=== PATIENT | female | born 1980 | race Caucasian/White ===

== ENCOUNTER 2022-05-09 09:16 | Outpatient (CLI) | payer MEDICAID, SELFPAY | END 2022-05-09 09:17 | disposition home or self-care (01) | LOC: RT 09:16 | PROVIDERS: Family Provider Family Medicine; PCP Family Medicine; Visit Provider Family Medicine | DX: R06.2 Wheezing (principal) | CPT/HCPCS: 94060; 94726; 94729; J7613 ==

== ENCOUNTER 2022-06-21 15:03 | Emergency (ER) | payer MEDICAID, SELFPAY ==
[2022-06-21] VITALS (7 sets, daily range): BP systolic 116–157; BP diastolic 60–90; PULSE 89–104; RESP 20–25; TEMP 36.7; O2SAT 91–95; BMI 31.3
[2022-06-21] MEDS: morphine 4 mg/mL SDV 1 mL IVP ×2 (15:37→17:21)
[2022-06-21] MEDS: ketorolac 30 mg/mL INJ IVP (15:37)
--- NOTE | 2022-06-21 15:38 | CTR_ITS ---
PROCEDURE INFORMATION: Exam: CT Abdomen And Pelvis Without Contrast Exam date and time: 06/21/2022 5:07 PM Age: 42 years old Clinical indication: Pain; Other: Left flank; Prior surgery; Surgery date: 6+ months; Patient HX: Gall bladder; Additional info: Flank pain TECHNIQUE: Imaging protocol: Computed tomography of the abdomen and pelvis without contrast. Axial, coronal and sagittal reformatted images were created and reviewed. Radiation optimization: All CT scans at this facility use at least one of these dose optimization techniques: automated exposure control; mA and/or kV adjustment per patient size (includes targeted exams where dose is matched to clinical indication); or iterative reconstruction. Other protocol: This patient has received 0 known CTs and 0 known cardiac nuclear medicine studies in the 12 months prior to the current study. COMPARISON: CT abdomen pelvis w con* [id number] 09/06/2018 7:50 AM RADIATION DOSE METRICS: Total DLP (mGy-cm): 850.33 FINDINGS: Lungs: Subsegmental consolidation and ground-glass infiltrates in the lingula, left lower lobe and right middle lobe. Pleural spaces: Small left pleural effusion. Liver: Mild hepatomegaly. Gallbladder and bile ducts: Status post cholecystectomy. No biliary ductal dilatation. Pancreas: Unremarkable. Spleen: Unremarkable. Adrenal glands: Normal. No mass. Kidneys and ureters: No mass. No radiodense calculi. No hydronephrosis. Stomach and bowel: Moderate amount of retained stool in the colon. No obstruction. No bowel wall thickening. No pneumatosis. Appendix: Normal. Intraperitoneal space: Trace nonspecific free pelvic fluid, likely physiologic. No organized fluid collection. No free air. Vasculature: Unremarkable. No aneurysm. Lymph nodes: No pathologically enlarged lymph nodes. Urinary bladder: Unremarkable as visualized. Reproductive: Unremarkable. Bones/joints: No acute osseous abnormality. Soft tissues: Small, fat containing umbilical hernia. CT/CT kidney stone [id number] IMPRESSION: 1. Limited noncontrast examination without CT evidence of acute intra-abdominal or pelvic pathology. 2. Small left pleural effusion. 3. Subsegmental consolidation and ground-glass infiltrates in the lingula, left lower lobe and right middle lobe. Pneumonia can not be excluded. 4. Additional findings, as above.
[2022-06-21 15:39] LABS: Basophils # 0.1 10^3/uL (0.0-0.1); Basophils % 0.6 %; Eosinophils # 0.2 10^3/uL (0.0-0.8); Eosinophils % 2.2 %; Hematocrit 37.5 % (37.0-47.0); Hemoglobin 12.1 g/dL (11.5-15.3); Lymphocytes % 35.2 %; Mean Corpuscular HGB Conc 32.3 g/dL (30.0-36.0); Mean Corpuscular Hemoglobin 27.7 pg (28.0-34.0); Mean Corpuscular Volume 85.8 fl (81-99); Mean Platelet Volume 10.7 fL (7.4-10.4); Monocytes # 0.7 10^3/uL (0.2-0.9); Monocytes % 8.4 %; Neutrophils # 4.54 10^3/uL (1.8-7.7); Neutrophils % 53.4 %; Nucleated Red Blood Cells % 0 %; Platelet Count 291 10^3/cmm (130-400); Red Blood Count 4.37 10^6/uL (4.1-5.3); Red Cell Distribution Width 14.6 % (12.1-15.1); White Blood Count 8.5 10^3/uL (4.0-10.0)
[2022-06-21 15:58] LABS: Anion Gap 16.1 (5-19); Blood Urea Nitrogen 7 mg/dL (6-20); Calcium 8.8 mg/dL (8.5-10.5); Carbon Dioxide 23 mmol/L (22-29); Chloride 102 mmol/L (98-107); Glomerular Filtration Rate 109.1 mL/min (90-130); Glucose 117 mg/dL (65-115); Osmolality Calculated 283 mOsm/kg (285-295); Potassium 4.1 mmol/L (3.5-5.1); Sodium 137 mmol/L (136-145)
[2022-06-21 16:17] LABS: Add Urine Microscopic? NO; Charge for UA Resulting for Rev
[2022-06-21 16:24] LABS: Bilirubin Urine Neg (Negative); Blood Urine Neg (Negative); Glucose Urine UA Norm (Normal); Ketones Urine 1+ (Negative); Leukocyte Esterase Urine Negative (Negative); Nitrate Urine Negative (Negative); Protein Urine Neg (Negative); Urine Appearance Clear (CLEAR); Urine Color Yellow (Yellow); Urobilinogen Urine 1 mg/dL (Negative); pH Urine 6 (5-7)
--- NOTE | 2022-06-21 16:31 | W.ED.BACK ---
HPI - Back Pain/Injury General: Chief Complaint: Back Pain/Injury Stated Complaint: back pain Time Seen by Provider: 06/21/22 15:12 Source: patient Mode of arrival: ambulatory History of Present Illness: 42-year-old female presents emergency room complaining of intermittent back pain for the last couple of days. She woke up with the back pain 1 morning and been nagging for a time. She was sitting in the car about an hour prior to arrival and suddenly had marked worsening of her pain. She cannot recall anything that seem to precipitate it no falls traumas accidents. She happened spontaneously she was not even bending over at the time does remember lifting anything that seem precipitated. She denies any previous kidney stones no hematuria. She denies any dysuria urgency or frequency is complaining of severe left flank pain when I came in the room she is standing at the bedside repositioning herself continually trying to find a comfortable position she does not have any pain with palpation across her low back. No radiation of pain into the lower extremities. MD elicited complaint: back pain Onset (ago): day(s) Timing: constant Severity: severe Similar Symptoms Previously: No Quality: sharp Location: left flank Radiation: none Exacerbating factors: none Associated symptoms: Deny abdominal pain, arthralgias, chills, change in bowel habits, difficulty walking, dysuria, fatigue, fecal incontinence, fever(s), hematuria, myalgias, nausea, numbness, syncope, tingling/numbness/burning, urinary frequency, urinary urgency, vomiting or weakness Review of Systems Const: Denies: fever(s), chills, fatigue or malaise ENMT: Denies: throat pain, ear or mastoid pain, nasal discharge or nasal congestion Card: Denies: chest pain, palpitations, irregular heart rhythm or syncope Resp: Denies: dyspnea, productive cough or non-productive cough GI: Denies: abdominal pain, nausea, vomiting, fecal incontinence or change in bowel habits : Reports: flank pain; Denies: dysuria, urinary frequency, urinary urgency or hematuria Skin/Breast: Denies: rash or pruritus Neuro: Denies: difficulty walking PFS ED PFSH: Medical History (Updated 06/21/22 @ 17:43 by Angelo Ascencio DO) Asthma Depression Physical Exam Const: COMMON NORMALS: no acute distress GENERAL APPEARANCE: cooperative and comfortable ORIENTATION/CONSCIOUSNESS: Yes awake, Yes oriented to person, Yes oriented to place and Yes oriented to time HENMT: COMMON NORMALS: normocephalic, atraumatic and hearing grossly normal bilaterally HEAD & SCALP: normocephalic and atraumatic Resp: COMMON NORMALS: normal respiratory effort, No retractions, No use of accessory muscles and clear to auscultation bilaterally AUSCULTATION: clear to auscultation bilaterally Cardio: COMMON NORMALS: regular rate, regular rhythm and No murmurs present (Cardio) RATE: regular rate RHYTHM: regular rhythm Extremity: COMMON NORMALS: normal to inspection, capillary refill normal, no clubbing, cyanosis or edema, no calf tenderness and no pedal edema Neuro: SENSORIUM/ORIENTATION: Yes oriented to person, Yes oriented to place and Yes oriented to time Skin: COMMON NORMALS: no rashes or lesions noted GENERAL SKIN EXAM: no rashes or lesions noted Course Vital Signs: Vital signs: Vital Signs Temperature 98.0 F 06/21/22 15:03 Pulse Rate 98 06/21/22 18:05 Respiratory Rate 22 H 06/21/22 17:21 Blood Pressure 123/69 06/21/22 18:05 Pulse Oximetry 93 06/21/22 18:05 Oxygen Delivery Me thod 06/21/22 18:05 MDM - Back Pain/Injury Medical Decision Making Patient has isolated low back pain that began spontaneously. No blood in the urine the way she presented initially she appeared to have renal stone was very uncomfortable shifting her weight moving constantly try to find a comfortable position CT was negative no blood in her urine other labs reviewed. She has no trauma. She did get improvement with medications given we will discharge patient home with diclofenac muscle relaxer steroid taper if worsening symptoms can return to the emergency room or if persist follow-up with primary care may need further imaging. Medical Records I reviewed the patient's medical records. Labs I reviewed the patient's lab results. 06/21/22 15:25 06/21/22 15:25 Radiology Impressions Abdomen/Pelvis CT 06/21/22 15:38 IMPRESSION: 1. Limited noncontrast examination without CT evidence of acute intra-abdominal or pelvic pathology. 2. Small left pleural effusion. 3. Subsegmental consolidation and ground-glass infiltrates in the lingula, left lower lobe and right middle lobe. Pneumonia can not be excluded. 4. Additional findings, as above. Laboratory Results WBC 8.5 10^3/uL (4.0-10.0) 06/21/22 15:25 RBC 4.37 10^6/uL (4.1-5.3) 06/21/22 15:25 Hgb 12.1 g/dL (11.5-15.3) 06/21/22 15:25 Hct 37.5 % (37.0-47.0) 06/21/22 15:25 MCV 85.8 fl (81-99) 06/21/22 15:25 MCH 27.7 pg (28.0-34.0) L 06/21/22 15:25 MCHC 32.3 g/dL (30.0-36.0) 06/21/22 15:25 RDW 14.6 % (12.1-15.1) 06/21/22 15:25 Plt Count 291 10^3/cmm (130-400) 06/21/22 15:25 MPV 10.7 fL (7.4-10.4) H 06/21/22 15:25 Neut % (Auto) 53.4 % 06/21/22 15:25 Lymph % (Auto) 35.2 % 06/21/22 15:25 [place] % (Auto) 8.4 % 06/21/22 15:25 Eos % (Auto) 2.2 % 06/21/22 15:25 Baso % (Auto) 0.6 % 06/21/22 15:25 Neut # (Auto) 4.54 10^3/uL (1.8-7.7) 06/21/22 15:25 Lymph # (Auto) 3.0 10^3/uL (0.8-4.8) 06/21/22 15:25 [place] # (Auto) 0.7 10^3/uL (0.2-0.9) 06/21/22 15:25 Eos # (Auto) 0.2 10^3/uL (0.0-0.8) 06/21/22 15:25 Baso # (Auto) 0.1 10^3/uL (0.0-0.1) 06/21/22 15:25 Nucleated RBC % (auto) 0 % 06/21/22 15:25 Nucleated RBCs # 0.0 /100WBC 06/21/22 15:25 Sodium 137 mmol/L (136-145) 06/21/22 15:25 Potassium 4.1 mmol/L (3.5-5.1) 06/21/22 15:25 Chloride 102 mmol/L (98-107) 06/21/22 15:25 Carbon Dioxide 23 mmol/L (22-29) 06/21/22 15:25 Anion Gap 16.1 (5-19) 06/21/22 15:25 BUN 7 mg/dL (6-20) 06/21/22 15:25 Creatinine 0.6 mg/dL (0.5-0.9) 06/21/22 15:25 GFR Calculation 109.1 mL/min (90-130) 06/21/22 15:25 Glucose 117 mg/dL (65-115) H 06/21/22 15:25 Calculated Osmolality 283 mOsm/kg (285-295) L 06/21/22 15:25 Calcium 8.8 mg/dL (8.5-10.5) 06/21/22 15:25 Urine Color Yellow (Yellow) 06/21/22 16:16 Urine Appearance Clear (CLEAR) 06/21/22 16:16 Urine pH 6 (5-7) 06/21/22 16:16 Ur Specific [place] 1.020 (1.005-1.030) 06/21/22 16:16 Urine Protein Neg (Negative) 06/21/22 16:16 Urine Glucose (UA) Norm (Normal) 06/21/22 16:16 Urine Ketones 1+ (Negative) H 06/21/22 16:16 Urine Blood Neg (Negative) 06/21/22 16:16 Urine Nitrate Negative (Negative) 06/21/22 16:16 Urine Bilirubin Neg (Negative) 06/21/22 16:16 Urine Urobilinogen 1 mg/dL (Negative) H 06/21/22 16:16 Ur Leukocyte Esterase Negative (Negative) 06/21/22 16:16 Discharge Plan Discharge Patient Disposition: Home Clinical Impression: Strain of lumbar region Condition: Stable Prescriptions: New prednisone 20 mg tablet 20 mg PO TID Qty: 15 0RF Rx Instructions: 1 p.o. 3 times daily x3 days, 1 p.o. twice daily x2 days, 1 p.o. daily x2 days diclofenac sodium 75 mg tablet,delayed release (DR/EC) 75 mg PO Q12H PRN (Reason: pain) Qty: 20 0RF tizanidine 4 mg capsule 4 mg PO Q6H PRN (Reason: muscle spasticity) Qty: 20 0RF Rx Instructions: do not exceed 3 doses per 24 hrs No Action budesonide-formoterol [Symbicort] 160-4.5 mcg/actuation HFA aerosol inhaler 2 puff inhalation BID fluoxetine 40 mg capsule 40 mg PO DAILY varenicline [Chantix] 1 mg tablet 1 mg PO BID hydroxyzine pamoate 50 mg capsule 50 - 100 mg PO BEDTIME PRN (Reason: Itching) propranolol 20 mg tablet 20 mg PO TID bupropion HCl 150 mg tablet extended release 24 hr 150 mg PO DAILY Discharge Orders: Discharge ED (Routine); Ordered 06/21/22 Ordered By: Angelo Ascencio Referrals: Red Blanco MD [Primary Care Provider] - Discharge Diet: Usual diet Discharge Activity: Increase activity as tolerated Patient Instructions: Acute Low Back Pain (ED), Opioid Safety, Pain Management Activity Restrictions/Additional Instructions: You were seen today for back pain. Some the characteristics of your pain you presented were suggestive of a kidney stone however there was no blood in your urine and the CT scan was negative for any stone. You are discharged home with pain medication steroids and muscle relaxers if your symptoms do not improve follow-up with primary care doctor. Coding Level of Care Code ED Blood Bank Business Manager for Peña Fwd Exam Detailed
[2022-06-21] MEDS: orphenadrine 30 mg/mL Inj 2 mL 60 MG IVP (17:56)
[2022-06-21] MEDS: dexamethasone 10 mg/mL INJ IVP (17:56)
== END 2022-06-21 18:10 | disposition home or self-care (01) ==
PROVIDERS: Emergency Provider Family Medicine; PCP Family Medicine
DX: S39.012A Strain of muscle, fascia and tendon of lower back, initial encounter (principal); X58.XXXA Exposure to other specified factors, initial encounter
CPT/HCPCS: 74176; 80048; 81003; 85025; 96374; 96375; 96376; 99285; J1100; J1885; J2270; J2360

== ENCOUNTER 2022-06-24 13:47 | Emergency (ER) | payer MEDICAID, SELFPAY ==
[2022-06-24 13:51] VITALS: BP 150/87; PULSE 89; RESP 19; TEMP 36.7; O2SAT 95; BMI 31.3
[2022-06-24 13:56] VITALS: BP 156/84; PULSE 78; RESP 16; O2SAT 95
--- NOTE | 2022-06-24 14:47 | CTR_ITS ---
PROCEDURE INFORMATION: Exam: CTA Chest With Contrast Exam date and time: 06/24/2022 3:20 PM Age: 42 years old Clinical indication: Pain; Left-sided; Additional info: Left sdied chest pain TECHNIQUE: Imaging protocol: Computed tomographic angiography of the chest with contrast. 3D rendering (Not supervised by radiologist): MIP and/or 3D reconstructed images were created by the technologist. Radiation optimization: All CT scans at this facility use at least one of these dose optimization techniques: automated exposure control; mA and/or kV adjustment per patient size (includes targeted exams where dose is matched to clinical indication); or iterative reconstruction. Contrast material: OMNI 350; Contrast volume: 90 ml; Contrast route: INTRAVENOUS (IV); Other protocol: This patient has received [address] and 0 known cardiac nuclear medicine studies in the 12 months prior to the current study. COMPARISON: CR XR chest 2V* [id number] 05/22/2022 11:14 AM RADIATION DOSE METRICS: Total DLP (mGy-cm): 467.37 FINDINGS: Pulmonary arteries: Normal. No pulmonary emboli. Aorta: Unremarkable. No aortic aneurysm. No aortic dissection. Lungs: Emphysematous changes. Patchy bilateral left greater than right airspace infiltrates. Pleural spaces: Trace right and small to moderate left pleural effusions. Heart: Cardiomegaly. Coronary arteries: Negative for coronary artery atherosclerotic calcifications. Lymph nodes: Several prominent mediastinal lymph nodes measuring 7.4 mm, nonspecific Gallbladder and bile ducts: Cholecystectomy. Bones/joints: Unremarkable. No acute fracture. Soft tissues: Unremarkable. CT/CT angio chest PE protcl [id number] IMPRESSION: 1. Negative for pulmonary embolus. 2. Trace right and small to moderate left pleural effusions. 3. Emphysematous changes. 4. Patchy bilateral left greater than right airspace infiltrates. 5. Cardiomegaly. 6. Cholecystectomy. 7. Several prominent mediastinal lymph nodes measuring 7.4 mm, nonspecific
--- NOTE | 2022-06-24 15:04 | W.ED.CHESTPA ---
HPI - Chest Pain General: Chief Complaint: Abdominal Pain Stated Complaint: cough Time Seen by Provider: 06/24/22 14:14 Source: patient Mode of arrival: ambulatory History of Present Illness: This 42-year-old female presents with left sided chest/rib cage pain that started 7 days ago. She woke up from sleep with the pain. Pain is sharp in nature and is exacerbated by movement and deep breathing. She was seen in this ER few days ago for the pain. CT abdomen/pelvis done at the time showed a small left pleural effusion, groundglass infiltrates in the lingula, left lower lobe and right middle lobe. Patient presents today stating that she was unable to sleep last night because of the pain. She has no fever, nausea or vomiting. Despite taking pain medications and muscle relaxers, pain has persisted. She is in distress due to the pain. Review of Systems Const: Denies: chills, body aches or change in appetite Eyes: Denies: change in vision or eye discharge ENMT: Denies: throat pain, dental pain or nasal discharge Card: Denies: chest pain or lightheadedness : Denies: dysuria Musc: Reports: other (Left rib cage pain); Denies: neck pain or back pain Neuro: Denies: headache(s) or weakness in extremities Psych: Denies: depression Philip/Lymph: Denies: easy bruising All/Imm: Denies: urticaria, tongue swelling or facial swelling PFS ED PFSH: Medical History (Updated 06/24/22 @ 17:03 by Zia Eduardo MD) Asthma Depression Physical Exam Const: COMMON NORMALS: patient oriented x3, no limitations and alert OTHER: Mild distress due to pain. HENMT: COMMON NORMALS: normocephalic HEAD & SCALP: normocephalic Eye: COMMON NORMALS: EOMs intact bilaterally Neck/C-Spine: COMMON NORMALS: full ROM and supple Chest: COMMONS NORMALS: normal inspection of the chest OTHER: Tenderness on palpation of the left lateral chest wall. No redness, bruising or step deformity. Pain is worsened on movement of the left shoulder especially on abduction and forward flexion. Resp: COMMON NORMALS: normal respiratory effort, No retractions, No use of accessory muscles and clear to auscultation bilaterally AUSCULTATION: clear to auscultation bilaterally Cardio: COMMON NORMALS: regular rate, regular rhythm and No murmurs present (Cardio) RATE: regular rate RHYTHM: regular rhythm GI: COMMON NORMALS: Normal to inspection, nondistended, normoactive bowel sounds present and non-tender : COMMON NORMALS: Yes no CVA tenderness BLADDER/KIDNEY EXAM: Yes no CVA tenderness Back/Pelvis: COMMON NORMALS: no CVA tenderness and no thoracic nor lumbar tenderness Extremity: GENERAL: Yes normal exam except as noted Neuro: COMMON NORMALS: patient oriented x3 and no focal motor deficits SENSORIUM/ORIENTATION: Yes alert Psych: COMMON NORMALS: mental status grossly normal and cooperative Course Vital Signs: Vital signs: Vital Signs Temperature 98.1 F 06/24/22 13:51 Pulse Rate 74 06/24/22 16:36 Respiratory Rate 16 06/24/22 16:36 Blood Pressure 120/80 06/24/22 16:36 Pulse Oximetry 91 06/24/22 16:36 Oxygen Delivery Me thod 06/24/22 16:36 MDM - Chest Pain Medical Decision Making Medical decision making: Patient presents with left rib cage/chest pain that started about 7 days ago. She denies any fall or trauma to the area. She was seen here few days ago and CT abdomen/pelvis at that time showed groundglass infiltrates in the lingula, left lower lobe and right middle lobe. With concerns for pulmonary embolism, CTA chest was obtained. It shows patchy bilateral airspace infiltrates and trace right and small to moderate left pleural effusion. She will be treated for pneumonia with antibiotics and pain medications. Given that oxygen saturation is normal on room air and she is clinically stable, there is no indication to admit her. But she was advised to return if she develops worsening pain, fever or any new concerning symptoms. Patient verbalized understanding and agrees with the plan. Lab Data 06/24/22 15:05 06/24/22 15:05 Radiology Impressions Chest CTA 06/24/22 14:47 IMPRESSION: 1. Negative for pulmonary embolus. 2. Trace right and small to moderate left pleural effusions. 3. Emphysematous changes. 4. Patchy bilateral left greater than right airspace infiltrates. 5. Cardiomegaly. 6. Cholecystectomy. 7. Several prominent mediastinal lymph nodes measuring 7.4 mm, nonspecific Laboratory Results WBC 16.4 10^3/uL (4.0-10.0) H 06/24/22 15:05 RBC 4.80 10^6/uL (4.1-5.3) 06/24/22 15:05 Hgb 13.1 g/dL (11.5-15.3) 06/24/22 15:05 Hct 40.9 % (37.0-47.0) 06/24/22 15:05 MCV 85.2 fl (81-99) 06/24/22 15:05 MCH 27.3 pg (28.0-34.0) L 06/24/22 15:05 MCHC 32.0 g/dL (30.0-36.0) 06/24/22 15:05 RDW 14.7 % (12.1-15.1) 06/24/22 15:05 Plt Count 381 10^3/cmm (130-400) 06/24/22 15:05 MPV 10.7 fL (7.4-10.4) H 06/24/22 15:05 Neut % (Auto) 85.3 % 06/24/22 15:05 Lymph % (Auto) 7.2 % 06/24/22 15:05 [place] % (Auto) 6.4 % 06/24/22 15:05 Eos % (Auto) 0.0 % 06/24/22 15:05 Baso % (Auto) 0.1 % 06/24/22 15:05 Neut # (Auto) 14.02 10^3/uL (1.8-7.7) H 06/24/22 15:05 Lymph # (Auto) 1.2 10^3/uL (0.8-4.8) 06/24/22 15:05 [place] # (Auto) 1.1 10^3/uL (0.2-0.9) H 06/24/22 15:05 Eos # (Auto) 0.0 10^3/uL (0.0-0.8) 06/24/22 15:05 Baso # (Auto) 0.0 10^3/uL (0.0-0.1) 06/24/22 15:05 Nucleated RBC % (auto) 0 % 06/24/22 15:05 Nucleated RBCs # 0.0 /100WBC 06/24/22 15:05 Sodium 137 mmol/L (136-145) 06/24/22 15:05 Potassium 4.3 mmol/L (3.5-5.1) 06/24/22 15:05 Chloride 99 mmol/L (98-107) 06/24/22 15:05 Carbon Dioxide 24 mmol/L (22-29) 06/24/22 15:05 Anion Gap 18.3 (5-19) 06/24/22 15:05 BUN 10 mg/dL (6-20) 06/24/22 15:05 Creatinine 0.6 mg/dL (0.5-0.9) 06/24/22 15:05 GFR Calculation 109.1 mL/min (90-130) 06/24/22 15:05 Glucose 136 mg/dL (65-115) H 06/24/22 15:05 Calculated Osmolality 285 mOsm/kg (285-295) 06/24/22 15:05 Calcium 9.1 mg/dL (8.5-10.5) 06/24/22 15:05 Total Bilirubin 0.2 mg/dL (0.15-1.2) 06/24/22 15:05 AST 38 U/L (0-32) H 06/24/22 15:05 ALT 66 U/L (0-33) H 06/24/22 15:05 Alkaline Phosphatase 111 U/L (35-105) H 06/24/22 15:05 Total Protein 7.4 g/dL (6.6-8.7) 06/24/22 15:05 Albumin 4.0 g/dL (3.5-5.2) 06/24/22 15:05 Globulin 3.4 g/dL (1.3-4.6) 06/24/22 15:05 Discharge Plan Discharge Patient Disposition: Home Clinical Impression: Pneumonia Condition: Stable Prescriptions: New levofloxacin 750 mg tablet 750 mg PO DAILY 7 Days Qty: 7 0RF hydrocodone-acetaminophen 5-325 mg tablet 1 tab PO Q6H PRN (Reason: pain) Qty: 20 0RF No Action budesonide-formoterol [Symbicort] 160-4.5 mcg/actuation HFA aerosol inhaler 2 puff inhalation BID fluoxetine 40 mg capsule 40 mg PO DAILY varenicline [Chantix] 1 mg tablet 1 mg PO BID hydroxyzine pamoate 50 mg capsule 50 - 100 mg PO BEDTIME PRN (Reason: Itching) propranolol 20 mg tablet 20 mg PO TID bupropion HCl 150 mg tablet extended release 24 hr 150 mg PO DAILY prednisone 20 mg tablet 20 mg PO TID Qty: 15 0RF Rx Instructions: 1 p.o. 3 times daily x3 days, 1 p.o. twice daily x2 days, 1 p.o. daily x2 days diclofenac sodium 75 mg tablet,delayed release (DR/EC) 75 mg PO Q12H PRN (Reason: pain) Qty: 20 0RF tizanidine 4 mg capsule 4 mg PO Q6H PRN (Reason: muscle spasticity) Qty: 20 0RF Rx Instructions: do not exceed 3 doses per 24 hrs Discharge Orders: Discharge ED (Routine); Ordered 06/24/22 Ordered By: Zia Eduardo Referrals: Red Blanco MD [Primary Care Provider] - Patient Instructions: Opioid Safety, Pain Management Activity Restrictions/Additional Instructions: Take Levaquin as prescribed. Take [place] as needed for pain. You may add [id number] Tylenol or Motrin to it. Follow-up with your primary care physician in 3 to 5 days for reevaluation. Return if your condition worsens or you develop any new concerning symptoms. Coding Level of Care Code ED Supervisor Calibration for Peña Fwd Exam Comprehensive
--- NOTE | 2022-06-24 15:08 | ECG_ITS ---
[facility] Test Date: 2022-06-24 Pat Name: Karoline Almaguer Department: Room: Gender: Female Bituminous Paving Machine Operator: : 1980 Requested By: Zia Grady Order Number: [id number] Albin MD: Marlee Snell M.D. Measurements Intervals [place] Rate: 76 P: 35 [place]: 140 QRS: 16 QRSD: 94 T: 28 QT: 367 QTc: 415 Interpretive Statements SINUS RHYTHM No previous ECG available for comparison Electronically Signed On 06-24-2022 15:38:06 FIELD ENGINEER by Marlee Snell M.D. [id number]
[2022-06-24] MEDS: morphine 4 mg/mL SDV 1 mL IVP (15:13)
[2022-06-24 15:14] VITALS: BP 156/84; PULSE 78; RESP 14; O2SAT 93
[2022-06-24 15:15] LABS: Basophils % 0.1 %; Hematocrit 40.9 % (37.0-47.0); Hemoglobin 13.1 g/dL (11.5-15.3); Lymphocytes # 1.2 10^3/uL (0.8-4.8); Lymphocytes % 7.2 %; Mean Corpuscular Hemoglobin 27.3 pg (28.0-34.0); Mean Corpuscular Volume 85.2 fl (81-99); Mean Platelet Volume 10.7 fL (7.4-10.4); Monocytes # 1.1 10^3/uL (0.2-0.9); Monocytes % 6.4 %; Neutrophils # 14.02 10^3/uL (1.8-7.7); Neutrophils % 85.3 %; Nucleated Red Blood Cells % 0 %; Platelet Count 381 10^3/cmm (130-400); Red Cell Distribution Width 14.7 % (12.1-15.1); White Blood Count 16.4 10^3/uL (4.0-10.0)
[2022-06-24] MEDS: iohexol 350 mg/mL 500 mL Btl (per mL) IV (15:31)
[2022-06-24 15:36] LABS: Alanine Aminotransferase 66 U/L (0-33); Alkaline Phosphatase 111 U/L (35-105); Anion Gap 18.3 (5-19); Aspartate Amino Transferase 38 U/L (0-32); Blood Urea Nitrogen 10 mg/dL (6-20); Calcium 9.1 mg/dL (8.5-10.5); Carbon Dioxide 24 mmol/L (22-29); Chloride 99 mmol/L (98-107); Globulin 3.4 g/dL (1.3-4.6); Glomerular Filtration Rate 109.1 mL/min (90-130); Glucose 136 mg/dL (65-115); Osmolality Calculated 285 mOsm/kg (285-295); Potassium 4.3 mmol/L (3.5-5.1); Sodium 137 mmol/L (136-145); Total Bilirubin 0.2 mg/dL (0.15-1.2); Total Protein 7.4 g/dL (6.6-8.7)
[2022-06-24 16:14] VITALS: BP 126/66; PULSE 68; RESP 18; O2SAT 90
[2022-06-24] MEDS: ketorolac 30 mg/mL INJ IVP (16:31)
[2022-06-24] MEDS: levoFLOXacin 750 mg Tablet PO (16:33)
[2022-06-24 16:36] VITALS: BP 120/80; PULSE 74; RESP 16; O2SAT 91
[2022-06-24 17:30] VITALS: BP 120/80; PULSE 74; RESP 16; O2SAT 91
== END 2022-06-24 17:32 | disposition home or self-care (01) ==
PROVIDERS: Emergency Provider Family Medicine; PCP Family Medicine
DX: J18.9 Pneumonia, unspecified organism (principal)
CPT/HCPCS: 71275; 80053; 85025; 93005; 96374; 96375; 99285; J1885; J2270; Q9967

== ENCOUNTER 2022-07-04 13:08 | Inpatient (IN) | payer MEDICAID, SELFPAY ==
[2022-07-04] VITALS (35 sets, daily range): BP systolic 121–147; BP diastolic 76–95; PULSE 79–114; RESP 16–20; TEMP 36.2–36.4; O2SAT 88–94; BMI 31.3
--- NOTE | 2022-07-04 13:20 | XRR_ITS ---
PROCEDURE INFORMATION: Exam: XR Chest Exam date and time: 07/04/2022 2:16 PM Age: 42 years old Clinical indication: Shortness of breath; Additional info: SOB TECHNIQUE: Imaging protocol: Radiologic exam of the chest. Views: 1 view. COMPARISON: CR XR chest 2V* [id number] 06/28/2022 12:10 PM FINDINGS: Lungs: There is no consolidation. Partial left lower lobe atelectasis is suspected. There is decreased opacity in the left lung base since 06/28/2022. Pleural spaces: Left pleural effusion is decreased since 06/28/2022. No pneumothorax. Heart/Mediastinum: Cardiomediastinal contours are unremarkable. Bones/joints: Bones are unremarkable. XR/XR chest 1V portable [id number] IMPRESSION: Decreased left pleural effusion and left lower lung opacity since 06/28/2022.
--- NOTE | 2022-07-04 14:49 | W.ED.SOB ---
HPI - SOB/Dyspnea General: Chief Complaint: Shortness of Breath/Dyspnea Stated Complaint: sob Time Seen by Provider: 07/04/22 14:32 Source: patient Mode of arrival: ambulatory History of Present Illness: HPI Narrative: 42-year-old female was recently for pneumonia in the emergency room had a pleural effusion at that time was treated as an outpatient has follow-up up with pulmonology has not yet seen pulmonology is increasing difficulty breathing is still on her oral antibiotic evaluation today is day 10. She states she had worsening time breathing has not been able to use her inhaled medication she is normally on Symbicort and ProAir. She denies any fever sweats chills or productive cough on initial arrival here she is hovering around 90% on room air and is mildly tachycardic but improves with rest. MD elicited complaint: shortness of breath and cough Pertinent past history: asthma Onset (ago): day(s) Context: recent illness Timing: constant Severity: severe Exacerbating factors: lying flat, exertion, coughing and talking Relieving factors: oxygen, rest and bronchodilators Known history of: asthma Associated symptoms: Reports abdominal pain, chest congestion, cough and orthopnea; Deny chest pain, diaphoresis, dizziness, extremity pain, fever(s), hemoptysis, lightheadedness, myalgias, nausea, palpitations, paresthesias, polydipsia, polyuria, rash, sense of impending doom, syncope or vomiting Treatment prior to arrival: none Review of Systems Const: Denies: fever(s), chills, fatigue, malaise or diaphoresis ENMT: Denies: throat pain, ear or mastoid pain, nasal discharge or nasal congestion Card: Reports: orthopnea; Denies: chest pain, palpitations, lightheadedness or syncope Resp: Reports: chest congestion; Denies: hemoptysis GI: Reports: abdominal pain; Denies: nausea or vomiting : Denies: flank pain, difficulty voiding, dysuria, urinary frequency or urinary urgency Musc: Denies: extremity pain Skin/Breast: Denies: rash or pruritus Neuro: Denies: dizziness Endo: Denies: polyuria or polydipsia PFSH ED PFSH: Medical History Asthma Depression Physical Exam Const: COMMON NORMALS: no acute distress GENERAL APPEARANCE: cooperative and comfortable ORIENTATION/CONSCIOUSNESS: Yes awake, Yes oriented to person, Yes oriented to place and Yes oriented to time HENMT: COMMON NORMALS: normocephalic, atraumatic and hearing grossly normal bilaterally HEAD & SCALP: normocephalic and atraumatic Resp: COMMON NORMALS: No retractions and No use of accessory muscles AUSCULTATION: crackles Laterality: left and wheezes Cardio: COMMON NORMALS: regular rhythm and No murmurs present (Cardio) RATE: tachycardic RHYTHM: regular rhythm GI: COMMON NORMALS: Soft to palpation and No hepatosplenomegaly present AUSCULTATION: Yes normoactive bowel sounds PALPATION: Yes Soft to palpation, No Tenderness to palpation present (GI), No Guarding due to palpation present (GI) and Yes No hepatosplenomegaly present Extremity: COMMON NORMALS: normal to inspection, capillary refill normal, no clubbing, cyanosis or edema, no calf tenderness and no pedal edema Neuro: SENSORIUM/ORIENTATION: Yes oriented to person, Yes oriented to place and Yes oriented to time Skin: COMMON NORMALS: no rashes or lesions noted GENERAL SKIN EXAM: no rashes or lesions noted Course Vital Signs: Vital signs: Vital Signs Temperature 97.7 F 07/05/22 04:00 Pulse Rate 75 07/05/22 04:00 Respiratory Rate 18 07/05/22 04:00 Blood Pressure 115/72 07/05/22 04:00 Pulse Oximetry 94 07/05/22 04:00 Oxygen Delivery Me thod 07/05/22 04:00 Oxygen Flow Rate 5 07/05/22 04:00 MDM - SOB/Dyspnea Medical Decision Making Patient on recent pneumonia is on the chest x-ray was read as lessening pleural effusion on the CT increased pleural effusion there still is some underlying pneumonia and she has failed outpatient therapy with Levaquin. Will admit to the hospital she is requiring significant oxygen support at 5 L by nasal cannula at this time. Started on Vanco and Zosyn discussed with hospitalist they are planning to tap her pleural effusion. Admission orders written. Medical Records I reviewed the patient's medical records. Lab Data I reviewed the patient's lab results. 07/04/22 14:41 07/04/22 14:41 Labs/Radiology: Radiology Impressions Chest X-Ray 07/04/22 13:20 IMPRESSION: Decreased left pleural effusion and left lower lung opacity since 06/28/2022. Chest CTA 07/04/22 15:48 IMPRESSION: 1. Moderate left pleural effusion has mildly increased in size when compared to the prior study. There is adjacent compressive atelectasis and or pneumonia. 2. Trace right pleural effusion with adjacent compressive atelectasis and or pneumonia. 3. There are centrilobular emphysematous changes in the bilateral lungs. Laboratory Results WBC 10.8 10^3/uL (4.0-10.0) H 07/04/22 14:41 RBC 4.92 10^6/uL (4.1-5.3) 07/04/22 14:41 Hgb 13.0 g/dL (11.5-15.3) 07/04/22 14:41 Hct 40.9 % (37.0-47.0) 07/04/22 14:41 MCV 83.1 fl (81-99) 07/04/22 14:41 MCH 26.4 pg (28.0-34.0) L 07/04/22 14:41 MCHC 31.8 g/dL (30.0-36.0) 07/04/22 14:41 RDW 14.3 % (12.1-15.1) 07/04/22 14:41 Plt Count 484 10^3/cmm (130-400) H 07/04/22 14:41 MPV 9.1 fL (7.4-10.4) 07/04/22 14:41 Neut % (Auto) 66.0 % 07/04/22 14:41 Lymph % (Auto) 24.3 % 07/04/22 14:41 [place] % (Auto) 6.8 % 07/04/22 14:41 Eos % (Auto) 1.2 % 07/04/22 14:41 Baso % (Auto) 0.6 % 07/04/22 14:41 Neut # (Auto) 7.12 10^3/uL (1.8-7.7) 07/04/22 14:41 Lymph # (Auto) 2.6 10^3/uL (0.8-4.8) 07/04/22 14:41 [place] # (Auto) 0.7 10^3/uL (0.2-0.9) 07/04/22 14:41 Eos # (Auto) 0.1 10^3/uL (0.0-0.8) 07/04/22 14:41 Baso # (Auto) 0.1 10^3/uL (0.0-0.1) 07/04/22 14:41 Nucleated RBC % (auto) 0 % 07/04/22 14: Nucleated RBCs # 0.0 /100WBC 07/04/22 14:41 Specimen Type Arterial 07/04/22 15:34 Sample Site Radial, right 07/04/22 15:34 ABG pH 7.44 (7.35-7.45) 07/04/22 15:34 ABG pCO2 40.4 mmHg (35-45) 07/04/22 15:34 ABG pO2 64.7 mmHg (80.0-100.0) L 07/04/22 15:34 ABG HCO3 27.1 mmol/L (22-26) H 07/04/22 15:34 ABG O2 Saturation 93.7 07/04/22 15:34 ABG Base Excess 2.6 mmol/L (-2.0-2.0) H 07/04/22 15:34 Puneet Test Pos 07/04/22 15:34 A-a O2 Gradient 14.2 mmHg (5-10) H 07/04/22 15:34 Hematocrit 40.4 % (37-47) 07/04/22 15:34 Hgb O2 Saturation 88.7 % (95-100) L 07/04/22 15:34 Carboxyhemoglobin 4.9 %THgb (0.4-20.1) 07/04/22 15:34 Methemoglobin 0.5 % (0.4-1.5) 07/04/22 15:34 Total Hemoglobin 13.2 g/dL (12-16) 07/04/22 15:34 Sodium 140.0 mmol/L (131-143) 07/04/22 15:34 Potassium 4.3 mmol/L (3.5-5.0) 07/04/22 15:34 Glucose 90.0 mg/dL (70-115) 07/04/22 15:34 Ionized Calcium 1.2 mmol/L (1.1-1.4) 07/04/22 15:34 O2 Delivery Device Nc 07/04/22 15:34 O2 Liters/Min 3.0 % 07/04/22 15:34 FiO2 32.0 % 07/04/22 15:34 Brazing Machine Operator ID glc 07/04/22 15:34 Sodium 137 mmol/L (136-145) 07/04/22 14:41 Potassium 4.4 mmol/L (3.5-5.1) 07/04/22 14:41 Chloride 101 mmol/L (98-107) 07/04/22 14:41 Carbon Dioxide 24 mmol/L (22-29) 07/04/22 14:41 Anion Gap 16.4 (5-19) 07/04/22 14:41 BUN 5 mg/dL (6-20) L 07/04/22 14:41 Creatinine 0.6 mg/dL (0.5-0.9) 07/04/22 14:41 GFR Calculation 109.1 mL/min (90-130) 07/04/22 14:41 Glucose 88 mg/dL (65-115) 07/04/22 14:41 Calculated Osmolality 281 mOsm/kg (285-295) L 07/04/22 14:41 Lactic Acid 2.1 mmol/L (0.5-2.2) 07/04/22 18:55 Calcium 9.0 mg/dL (8.5-10.5) 07/04/22 14:41 Total Bilirubin 0.2 mg/dL (0.15-1.2) 07/04/22 14:41 AST 12 U/L (0-32) 07/04/22 14:41 ALT 39 U/L (0-33) H 07/04/22 14:41 Alkaline Phosphatase 126 U/L (35-105) H 07/04/22 14:41 NT-Pro-B Natriuret Pep 40 pg/mL (0-125) 07/04/22 18:55 Total Protein 6.9 g/dL (6.6-8.7) 07/04/22 14:41 Albumin 3.8 g/dL (3.5-5.2) 07/04/22 14:41 Globulin 3.1 g/dL (1.3-4.6) 07/04/22 14:41 Procalcitonin 0.02 ng/mL (0-0.5) 07/04/22 18:55 TSH 0.33 uIU/mL (0.27-4.20) 07/04/22 18:55 Discharge Plan Discharge Patient Disposition: Admitted As Inpatient Admit Provider: Yadira Mariano Clinical Impression: Community acquired pneumonia, Asthma with exacerbation Condition: Stable Coding Level of Care Code ED Lowerator Operator for Peña De Jesus
[2022-07-04 14:59] LABS: Basophils # 0.1 10^3/uL (0.0-0.1); Basophils % 0.6 %; Eosinophils # 0.1 10^3/uL (0.0-0.8); Eosinophils % 1.2 %; Hematocrit 40.9 % (37.0-47.0); Lymphocytes # 2.6 10^3/uL (0.8-4.8); Lymphocytes % 24.3 %; Mean Corpuscular HGB Conc 31.8 g/dL (30.0-36.0); Mean Corpuscular Hemoglobin 26.4 pg (28.0-34.0); Mean Corpuscular Volume 83.1 fl (81-99); Mean Platelet Volume 9.1 fL (7.4-10.4); Monocytes # 0.7 10^3/uL (0.2-0.9); Monocytes % 6.8 %; Neutrophils # 7.12 10^3/uL (1.8-7.7); Nucleated Red Blood Cells % 0 %; Platelet Count 484 10^3/cmm (130-400); Red Blood Count 4.92 10^6/uL (4.1-5.3); Red Cell Distribution Width 14.3 % (12.1-15.1); White Blood Count 10.8 10^3/uL (4.0-10.0)
[2022-07-04 15:24] LABS: Alanine Aminotransferase 39 U/L (0-33); Albumin Level 3.8 g/dL (3.5-5.2); Alkaline Phosphatase 126 U/L (35-105); Anion Gap 16.4 (5-19); Aspartate Amino Transferase 12 U/L (0-32); Blood Urea Nitrogen 5 mg/dL (6-20); Carbon Dioxide 24 mmol/L (22-29); Chloride 101 mmol/L (98-107); Globulin 3.1 g/dL (1.3-4.6); Glomerular Filtration Rate 109.1 mL/min (90-130); Glucose 88 mg/dL (65-115); Osmolality Calculated 281 mOsm/kg (285-295); Potassium 4.4 mmol/L (3.5-5.1); Sodium 137 mmol/L (136-145); Total Bilirubin 0.2 mg/dL (0.15-1.2); Total Protein 6.9 g/dL (6.6-8.7)
[2022-07-04] MEDS: ipratropium-albuterol 3 mL Neb INHALATION ×2 (15:26→21:48)
[2022-07-04 15:46] LABS: ABG PCO2 40.4 mmHg (35-45); ABG PH Result 7.44 (7.35-7.45); Alveolar-Arterial Oxygen Gradi 14.2 mmHg (5-10); Arterial Blood Gas Hematocrit 40.4 % (37-47); Base Excess ABG 2.6 mmol/L (-2.0-2.0); Blood Gas Allen Test Pos; Blood Gas Operator Identificat glc; Blood Gas Sample Site Radial, right; Blood Gas Sample Type Arterial; Carboxyhemoglobin 4.9 %THgb (0.4-20.1); HCO3 ABG 27.1 mmol/L (22-26); HGB O2 Sat 88.7 % (95-100); Ionized Calcium Level - ABG 1.2 mmol/L (1.1-1.4); Methemoglobin 0.5 % (0.4-1.5); Oxygen Device NC; Oxygen Saturation ABG 93.7; PO2 ABG 64.7 mmHg (80.0-100.0); Potassium Level - ABG 4.3 mmol/L (3.5-5.0); Total Hemoglobin 13.2 g/dL (12-16)
--- NOTE | 2022-07-04 15:48 | CTR_ITS ---
PROCEDURE INFORMATION: Exam: CTA Chest With Contrast Exam date and time: 07/04/2022 5:14 PM Age: 42 years old Clinical indication: Condition or disease; Lung condition and disease; Pleural effusion and pneumonia; Other: Not specified; Additional info: Hypoxia TECHNIQUE: Imaging protocol: Computed tomographic angiography of the chest with contrast. 3D rendering (Not supervised by radiologist): MIP and/or 3D reconstructed images were created by the technologist. Radiation optimization: All CT scans at this facility use at least one of these dose optimization techniques: automated exposure control; mA and/or kV adjustment per patient size (includes targeted exams where dose is matched to clinical indication); or iterative reconstruction. Contrast material: OMNIPAQUE 350; Contrast volume: 95 ml; Contrast route: INTRAVENOUS (IV); Other protocol: This patient has received 2 known CTs and 0 known cardiac nuclear medicine studies in the 12 months prior to the current study. COMPARISON: CT angio chest PE prot [id number] 06/24/2022 3:20 PM RADIATION DOSE METRICS: Total DLP (mGy-cm): 366.54 FINDINGS: Pulmonary arteries: Normal. No pulmonary emboli. Aorta: Unremarkable. No aortic aneurysm. No aortic dissection. Lungs: Trace right pleural effusion with adjacent compressive atelectasis and or pneumonia. There are centrilobular emphysematous changes in the bilateral lungs. Pleural spaces: Moderate left pleural effusion has mildly increased in size when compared to the prior study. There is adjacent compressive atelectasis and or pneumonia. Heart: Unremarkable. No cardiomegaly. No pericardial effusion. Lymph nodes: Unremarkable. No enlarged lymph nodes. Bones/joints: Unremarkable. No acute fracture. Soft tissues: Unremarkable. CT/CT angio chest PE protcl [id number] IMPRESSION: 1. Moderate left pleural effusion has mildly increased in size when compared to the prior study. There is adjacent compressive atelectasis and or pneumonia. 2. Trace right pleural effusion with adjacent compressive atelectasis and or pneumonia. 3. There are centrilobular emphysematous changes in the bilateral lungs.
[2022-07-04] MEDS: iohexol 350 mg/mL 500 mL Btl (per mL) IV (17:23)
[2022-07-04] MEDS: morphine 4 mg/mL SDV 1 mL 2 MG IVP (17:50)
--- NOTE | 2022-07-04 18:30 | P.HP_ITS ---
Providers/Chief Complaint Primary Care Provider: Red Blanco MD Chief Complaint: sob History of Present Illness Karoline Almaguer is a 42 year old female with past medical history of depression, asthma presented to the hospital with complaint of pain from a pulled possible that kept getting worse and having shortness of breath. [place] and went to bed Sunday night and when she woke up she felt she had a pulled muscle on the left side. He states it hurts every time she takes a deep breath and the pain has gotten worse and worse. She went to see her primary care doctor and a muscle relaxer was given to her. 3 days later it became even worse she went back to the doctor and was given a chest x-ray which showed a pleural effusion. She was given levofloxacin for 7 days for presumed pneumonia. She was also given an appointment with a upholstery covers inspector which she will be seeing next week on . He says today she became very very short of breath and decided to come to the ER. In the ER she is requiring 4 L nasal cannula oxygen. Chest x-ray does show increased pleural effusion. CTA chest was done to rule out PE which showed moderate left pleural effusion that has mildly increased in size when compared to prior study. There is adjacent compressive atelectasis and/or pneumonia. There is also trace right pleural effusion with adjacent compressive atelectasis or pneumonia. Centrilobular e mphysematous changes in bilateral lungs. Patient does have a history of asthma diagnosed by her primary care doctor however has not had any formal PFTs done. She even denies that she has asthma but is listed in her chart and patient is on albuterol and Symbicort at home. Of note patient also had abdomen CT done on June 21 which showed subsegmental consolidation and groundglass infiltrates in lingula left lower lobe and right middle lobe. There was also a small left pleural effusion present at that time. WBC count 10.8, ABG showed 7.4/40.4/64.7/27.1. Creatinine 0.6, lactic acid 2.1, ALT 39, alkaline phosphatase 126, albumin 3.8. Medications/Allergies Home Medications Medication Instructions Recorded Confirmed Last Taken Type budesonide-formoterol HFA 160 2 puff inhalation BID 05/19/22 07/04/22 07/04/22 H istory mcg-4.5 mcg/actuation aerosol inhaler (Symbicort) fluoxetine 40 mg capsule 40 mg PO DAILY 05/19/22 07/04/22 07/04/22 History bupropion HCl 150 mg 24 hr tablet, 150 mg PO DAILY 06/21/22 07/04/22 06/21/22 History extended release hydroxyzine pamoate 50 mg capsule 50 - 100 mg PO BEDTIME PRN Itching 06/21/22 07/04/22 07/03/22 History propranolol 20 mg tablet 20 mg PO TID PRN Hypertension 06/21/22 07/04/22 06/21/22 History hydrocodone 5 mg-acetaminophen 325 1 tab PO Q6H PRN pain #20 tabs 06/24/22 07/04/22 Unknown Rx mg tablet levofloxacin 750 mg tablet 750 mg PO DAILY 07/04/22 07/04/22 07/04/22 History Allergies Allergy/AdvReac Type Severity Reaction Status Date / Time No Known Allergies Allergy Verified 07/04/22 15:36 PFSH Acute PFSH: Medical History Asthma Depression Vitals/I&O/Wt Last Vital Signs Temp 97.2 F L 07/04/22 13:16 Pulse 85 07/04/22 18:11 Resp 20 H 07/04/22 18:11 BP 126/81 07/04/22 18:11 Pulse Ox 91 07/04/22 18:11 O2 Del Method 07/04/22 18:11 O2 Flow Rate 4 07/04/22 18:11 Weight last 48 hrs Weight 90.718 kg Physical Exam Narrative: General: Alert oriented x3, patient seen sitting up in bed appearing comfortable at this time on 4 L nasal cannula saturating 96%. HEENT: Normocephalic, atraumatic, EOMI, breathing comfortably with no acute respiratory distress. No conversational dyspnea present. Cardio: Regular rate rhythm, normal S1-S2, Respiratory: Mainly clear to auscultation with mild rhonchi in middle lung field with mild crackles at left lung base. GI: Abdomen soft, nontender, nondistended, bowel sounds + Behavior: Appropriate and cooperative Extremities: No edema noted. Data 07/04/22 14:41 07/04/22 14:41 A&P Assessment and plan (1) Community acquired pneumonia: (2) Asthma with exacerbation: (3) Asthma: (4) Depression: (5) Hypoxia: (6) Oxygen dependent: (7) Pleuritic chest pain: Plan #Shortness of breath, hypoxic most likely secondary to worsening pleural effusion versus underlying pneumonia #Community-acquired pneumonia #Left pleural effusion, also present on right side much less #History of asthma #Depression ? Check COVID, influenza ? There was evidence of pneumonia on CT abdomen pelvis done on June 21. It is possible that this may be a parapneumonic effusion. ? Order thoracentesis and send fluid for cytology ? Check serum LDH and total protein serum for completing lites criteria ? Continue oxygen as required and escalate as needed ? Patient was on Levaquin as an outpatient. I will put her on Vanco and Zosyn at this time I do not believe we need to have double pseudomonal coverage. We will de-escalate pending clinical course ? Continue DuoNeb every 4 hours scheduled ? Pulmicort twice daily schedule ? Tylenol for pain ? Continue fluoxetine, Wellbutrin ? I will hold propranolol for now. It is listed for hypertension as needed in her chart. ? Check procalcitonin, sputum Gram stain culture, blood cultures, repeat lactic acid - Patient will need to continue with her pulmonology follow-up at discharge ? Wean off oxygen as able ? Check an echocardiogram - Placed on IV fluids 75 cc/h normal saline. Diet: Regular diet DVT prophylaxis: Heparin SQ twice daily GI prophylaxis: Not indicated Full code Attestations Medical Necessity Statement*: Will cross greater than 2 midnight stay for management of pleural effusion versus underlying pneumonia. Diagnoses Community acquired pneumonia J18.9 Asthma with exacerbation J45.901 Asthma J45.909 Depression F32.A Hypoxia R09.02 Oxygen dependent Z99.81 Pleuritic chest pain R07.81 Time Spent (min) 50
[2022-07-04] MEDS: piperacillin-tazobactam 4.5 GM in sodium chloride 0.9% (plus) 50 ML IV (18:33)
[2022-07-04] MEDS: vancomycin 1,000 MG in sodium chloride 0.9% 250 ML 250 MG IV (19:10)
[2022-07-04] MEDS: heparin 5,000 unit/mL INJ 1 mL 5000 UNIT SUBCUT (19:10)
[2022-07-04 19:30] LABS: Lactic Sepsis W/Reflex 2.1 mmol/L (0.5-2.2)
[2022-07-04 19:42] LABS: NT Pro B Type Natriuretic Pept 40 pg/mL (0-125); Procalcitonin 0.02 ng/mL (0-0.5)
[2022-07-04 20:51] LABS: Reflex Lactate Order REFLEX LACTIC ORDERD
[2022-07-04 21:38] LABS: Thyroid Stimulating Hormone 0.33 uIU/mL (0.27-4.20)
[2022-07-04] MEDS: sodium chloride 0.9% 1,000 ML 100 ML IV (22:03)
[2022-07-04] MEDS: HYDROcodone-acetaminophen 5-325 mg Tablet 1 TAB PO (22:06)
[2022-07-04 22:32] LABS: Lactic Acid level (Lactate) 4.2 mmol/L (0.5-2.2)
--- NOTE | 2022-07-04 22:44 | PC.NURSE ---
notified of crial lab-lactic acid 4.2, will check redraw in am.
[2022-07-05] VITALS (16 sets, daily range): BP systolic 114–131; BP diastolic 66–83; PULSE 72–102; RESP 16–18; TEMP 36.5–36.9; O2SAT 91–96
[2022-07-05] MEDS: piperacillin-tazobactam 3.375 GM in sodium chloride 0.9% (plus) 50 ML IV ×4 (00:04→23:38)
[2022-07-05 00:59] LABS: Influenza A by IFA negative (Negative); Influenza B by IFA negative (Negative)
[2022-07-05 02:28] LABS: Adenovirus Not Detected (NOT DETECT); Chlamydia Pneumoniae Not Detected (NOT DETECT); Coronavirus 229E,HKU1,NL63,OC4 Not Detected (NOT DETECT); Human Metapneumovirus Not Detected (NOT DETECT); Human Rhinovirus/Enterovirus Not Detected (NOT DETECT); Influenza A Not Detected (NOT DETECT); Influenza A H1 Not Detected (NOT DETECT); Influenza A H1-2009 Not Detected (NOT DETECT); Influenza A H3 Not Detected (NOT DETECT); Influenza B Not Detected (NOT DETECT); Mycoplasma Pneumoniae Not Detected (NOT DETECT); Parainfluenza Virus Type 1 Not Detected (NOT DETECT); Parainfluenza Virus Type 2 Not Detected (NOT DETECT); Parainfluenza Virus Type 3 Not Detected (NOT DETECT); Parainfluenza Virus Type 4 Not Detected (NOT DETECT); Respiratory Syncytial Virus A Not Detected (NOT DETECT); Respiratory Syncytial Virus B Not Detected (NOT DETECT); SARS-COV-2 Not Detected (NOT DETECT)
[2022-07-05] MEDS: vancomycin 1,000 MG in sodium chloride 0.9% 250 ML 250 MG IV ×3 (02:59→21:22)
[2022-07-05] MEDS: HYDROcodone-acetaminophen 5-325 mg Tablet 1 TAB PO ×3 (04:00→23:39)
[2022-07-05 05:57] LABS: Basophils % 0.1 %; Hematocrit 36.9 % (37.0-47.0); Hemoglobin 11.9 g/dL (11.5-15.3); Lymphocytes # 1.3 10^3/uL (0.8-4.8); Lymphocytes % 6.1 %; Mean Corpuscular HGB Conc 32.2 g/dL (30.0-36.0); Mean Corpuscular Hemoglobin 26.6 pg (28.0-34.0); Mean Corpuscular Volume 82.6 fl (81-99); Mean Platelet Volume 9.3 fL (7.4-10.4); Monocytes # 0.5 10^3/uL (0.2-0.9); Monocytes % 2.5 %; Neutrophils # 18.56 10^3/uL (1.8-7.7); Neutrophils % 90.3 %; Nucleated Red Blood Cells % 0 %; Platelet Count 444 10^3/cmm (130-400); Red Blood Count 4.47 10^6/uL (4.1-5.3); Red Cell Distribution Width 14.4 % (12.1-15.1); White Blood Count 20.6 10^3/uL (4.0-10.0)
[2022-07-05 06:18] LABS: Alanine Aminotransferase 38 U/L (0-33); Albumin Level 3.4 g/dL (3.5-5.2); Alkaline Phosphatase 118 U/L (35-105); Anion Gap 15.7 (5-19); Aspartate Amino Transferase 20 U/L (0-32); Blood Urea Nitrogen 12 mg/dL (6-20); Calcium 8.6 mg/dL (8.5-10.5); Carbon Dioxide 23 mmol/L (22-29); Chloride 102 mmol/L (98-107); Globulin 2.9 g/dL (1.3-4.6); Glomerular Filtration Rate 91.3 mL/min (90-130); Glucose 142 mg/dL (65-115); Lactate Dehydrogenase 165 U/L (135-214); Magnesium 2.2 mg/dL (1.7-2.3); Osmolality Calculated 284 mOsm/kg (285-295); Potassium 4.7 mmol/L (3.5-5.1); Sodium 136 mmol/L (136-145); Total Bilirubin 0.2 mg/dL (0.15-1.2); Total Protein 6.3 g/dL (6.6-8.7)
--- NOTE | 2022-07-05 07:30 | PC.NURSE ---
Bedside report performed with Stephanie WANG at this time. Patient resting in bed.
[2022-07-05] MEDS: fluoxetine 20 mg Capsule 40 MG PO (08:12)
[2022-07-05] MEDS: buPROPion XL (24 HR) 150 mg Tablet PO (08:12)
[2022-07-05] MEDS: sodium chloride 0.9% 1,000 ML 100 ML IV (08:13)
[2022-07-05] MEDS: heparin 5,000 unit/mL INJ 1 mL 5000 UNIT SUBCUT ×2 (08:15→18:43)
[2022-07-05] MEDS: ipratropium-albuterol 3 mL Neb INHALATION ×4 (08:23→22:22)
--- NOTE | 2022-07-05 08:31 | USCV_ITS ---
Karoline Almaguer Age: 42 Gender: F : 1980 Exam Date: 07/05/2022 08:52 Ordering Phys: Yadira Mariano MD Technologist: EDU [place]am [place] [facility] [place]ication: BILAT PLEURAL EFFUSION, SHORTNESS OF BREATH BP: 121 / 71 HR: 76 Rhythm: Sinus Technical Quality: Adequate MEASUREMENTS (Male / Female) Normal Values 2D ECHO LVOT Diameter 2.0 cm LV Ejection Fraction MOD 2C 65.8 % LV Ejection Fraction 2C AL 66.5 % LA Diameter 3.4 cm LA Width 3.8 cm LA Height 5.0 cm RA Width 3.6 cm RA Height 5.1 cm Aorta at Sinotubular Diameter 2.2 cm IVC Diameter 1.9 cm M-MODE Aortic Annulus Diameter 3.0 cm LA Ao Ratio MM 1.1 MV E Point Septal Separation 0.4 cm DOPPLER AV Peak Velocity 153.0 cm/s LVOT Peak Velocity 122.0 cm/s AV Area Cont Eq vti 2.4 cm squared AV Area Cont Eq pk 2.6 cm squared MV Peak Velocity 113.0 cm/s MV Area PHT 5.0 cm squared Mitral E to A Ratio 1.1 MV E' Velocity 57.0 cm/s Mitral E to MV E' Ratio 6.5 Mitral E to LV E' Lateral Ratio 5.5 Mitral E to LV E' Septal Ratio 8.1 TR Peak Velocity 183.6 cm/s TR Peak Gradient 13.5 mmHg TR Mean Velocity 132.2 cm/s TR Mean Gradient 7.1 mmHg TR Velocity Time Integral 50.1 cm TV Peak E Velocity 44.0 cm/s Right Atrial Pressure 3.0 mmHg Pulmonary Artery Systolic Pressu 16.5 mmHg PV Peak Velocity 124.0 cm/s RV Acceleration Time 0.2 s RV Ejection Time 0.4 s RV AcT/ET 0.4 FINDINGS Left Ventricle Normal left ventricular size and systolic function, EF 68 %. No regional wall motion abnormalities. Right Ventricle The right ventricle is normal in size and function. Right Atrium Prominent IVC flow and coronary sinus flow into the right atrium Left Atrium The left atrium is normal in size. Mitral Valve No gross abnormalities noted Aortic Valve No gross abnormalities noted Tricuspid Valve Trace tricuspid valve regurgitation. Pulmonic Valve No gross abnormalities noted Pericardium No pericardial effusion. Aorta Normal aortic annulus size. IVC Normal inferior vena cava. CONCLUSIONS Normal left ventricular size and systolic function, EF 68 %. No regional wall motion abnormalities. Prominent IVC flow and coronary sinus flow into the right atrium. Trace tricuspid valve regurgitation. There is no pericardial effusion. There are no intracardiac masses. No similar previous studies are available for comparison Dr Christiano Gresham MD [facility] (Electronically Signed) Final Date: 05 July 2022 17:32 S
--- NOTE | 2022-07-05 13:12 | P.PN_ITS ---
Subjective Subjective: reports feeling slightly better on 3L NC going for thoracentesis today Vitals/I&O/Wt Last Vital Signs Temp 98.0 F 07/05/22 12:00 Pulse 102 H 07/05/22 12:00 Resp 17 07/05/22 12:00 BP 120/77 07/05/22 12:00 Pulse Ox 95 07/05/22 12:00 O2 Del Method 07/05/22 12:00 O2 Flow Rate 3 07/05/22 11:03 07/04/22 07/05/22 07/05/22 22:59 06:59 14:59 Intake Total 800 / 800 50 / 850 1371.667 / 1371.667 Balance 800 / 800 50 / 850 1371.667 / 1371.667 Weight last 48 hrs Weight 90.718 kg Physical Exam Narrative: General: Alert oriented x3, patient seen sitting up in bed appearing comfortable at this time on 3 L nasal cannula HEENT: Normocephalic, atraumatic, EOMI, breathing comfortably with no acute respiratory distress. Cardio: Regular rate rhythm, normal S1-S2, Respiratory: Mainly clear to auscultation, mild ronchi at left base. GI: Abdomen soft, nontender, nondistended, bowel sounds + Behavior: Appropriate and cooperative Extremities: No edema noted. Data 07/05/22 05:22 07/05/22 05:22 Micro: Microbiology 07/04/22 20:40 Bacterial Antigens - Final Urine,Voided 07/04/22 20:40 Legionella Urinary Antigen - Final Urine,Voided 07/04/22 18:55 Blood Culture - Preliminary Blood SPECIMEN COLLECTED 07/04/22 18:55 Blood Culture - Preliminary Blood SPECIMEN COLLECTED A&P Assessment and plan (1) Community acquired pneumonia: (2) Asthma with exacerbation: (3) Asthma: (4) Depression: (5) Hypoxia: (6) Oxygen dependent: (7) Pleuritic chest pain: Plan #Shortness of breath, hypoxic most likely secondary to worsening pleural effusion versus underlying pneumonia #Community-acquired pneumonia #Left pleural effusion, also present on right side much less #History of asthma #Depression ? COVID, influenza are both negative. ? There was evidence of pneumonia on CT abdomen pelvis done on June 21. It is possible that this may be a parapneumonic effusion. ? Order thoracentesis and send fluid for cytology ? Check serum LDH and total protein serum for completing lites criteria ? Continue oxygen as required and escalate as needed ? Continue vanc and zosyn ? Continue DuoNeb every 4 hours scheduled ? Pulmicort twice daily schedule ? Tylenol for pain ? Continue fluoxetine, Wellbutrin ? I will hold propranolol for now. It is listed for hypertension as needed in her chart. ? Procalcitonin 0.02, TSH 0.33, sputum Gram stain culture pending, blood cultures pending, repeat lactic acid was 4.4 overnight. Will recheck. - Patient will need to continue with her pulmonology follow-up at discharge ? Wean off oxygen as able ? Echo pending - Placed on IV fluids 75 cc/h normal saline. Plan for thoracentesis today Diet: Regular diet DVT prophylaxis: Heparin SQ twice daily GI prophylaxis: Not indicated Full code Attestations Medical Necessity Statement*: Will cross greater than 2 midnight stay for m anagement of pleural effusion versus underlying pneumonia. Other Coding Information Focused coding review requested Diagnoses Community acquired pneumonia J18.9 Asthma with exacerbation J45.901 Asthma J45.909 Depression F32.A Hypoxia R09.02 Oxygen dependent Z99.81 Pleuritic chest pain R07.81
--- NOTE | 2022-07-05 14:22 | XRR_ITS ---
PROCEDURE INFORMATION: Exam: XR Chest Exam date and time: 07/05/2022 2:29 PM Age: 42 years old Clinical indication: Device placement; Other: Post thoracentesis TECHNIQUE: Imaging protocol: Radiologic exam of the chest. Views: 1 view. COMPARISON: CR XR chest 1V portable [id number] 07/04/2022 2:16 PM FINDINGS: Lungs: Decreased opacity at the left lung base. Lungs are otherwise clear. Pleural spaces: The left lateral costophrenic sulcus is blunted. No pneumothorax. Heart/Mediastinum: Cardiomediastinal contours are unremarkable. Bones/joints: Bones are unremarkable. XR/XR chest 1V portable [id number] IMPRESSION: Decreased opacity at the left lung base consistent with decreasing pleural fluid and/or adjacent atelectasis.
[2022-07-05 14:34] LABS: Lactic Sepsis W/Reflex 1.4 mmol/L (0.5-2.2)
[2022-07-05 15:15] LABS: Mononuclear %, Pleural Fluid 93 %; Polynuclear Cells, Pleural # 0.242 10^3/uL; Polynuclear Cells, Pleural % 7 %
[2022-07-05 15:36] LABS: Pleural Fluid Albumin 2.4 g/dL; Pleural Fluid Cholesterol 111 mg/dL; Pleural Fluid Triglycerides 79 mg/dL
[2022-07-05 15:37] LABS: LDH Pleural Fluid 241 U/L; Total Protein Pleural Fluid 3.9 g/dL
[2022-07-05 15:39] LABS: Appearance, Pleural Fluid CLEAR (CLEAR); Color, Pleural Fluid Yellow (Pale Yellow)
[2022-07-05 16:42] LABS: Left Pleural Fluid Analysis Left Lung; PATH Referal YES
[2022-07-05 16:52] LABS: PATH Referral YES; Pleural Fluid Specific Gravity 1.005
[2022-07-05 16:56] LABS: Cyto Order Verification No Order
[2022-07-05] MEDS: sodium chloride 0.9% 1,000 ML 75 ML IV (17:49)
--- NOTE | 2022-07-05 18:27 | US_ITS ---
WS: [id number] ULTRASOUND-GUIDED THORACENTESIS CLINICAL INFORMATION: pleural effusion COMPARISON: None. PROCEDURE: Informed consent: The risks, benefits, and alternatives of the procedure were discussed with the marielena ent. Verbal and written consent was obtained. Timeout: A timeout was performed to confirm the correct patient, procedure, and site. Site: LEFT chest Preparation: A suitable skin site was identified. The patient was prepped and draped in usual sterile fashion. Lidocaine 1% was used for local anesthesia. Catheter: 4 [place] One-Step catheter. Fluid Volume: 150 ml Color: Serous bloody Fluid sent to the laboratory for further analysis. Complications: No pneumothorax on the postthoracen tesis chest. US/ thoracentesis [id number] IMPRESSION: 1. Uncomplicated ultrasound-guided LEFT thoracentesis. 2. 150 cc serous bloody fluid removed and sent for requested diagnostic tests
--- NOTE | 2022-07-06 03:46 | PC.NURSE ---
patient request telemetry to be taken off, anesthesiology technologist notified.
[2022-07-06 04:00] VITALS: BP 117/76; PULSE 65; RESP 16; TEMP 36.9; O2SAT 93
[2022-07-06 05:07] LABS: Basophils # 0.1 10^3/uL (0.0-0.1); Basophils % 0.5 %; Eosinophils % 0.3 %; Hematocrit 33.4 % (37.0-47.0); Hemoglobin 10.4 g/dL (11.5-15.3); Lymphocytes # 3.4 10^3/uL (0.8-4.8); Lymphocytes % 29.2 %; Mean Corpuscular HGB Conc 31.1 g/dL (30.0-36.0); Mean Corpuscular Hemoglobin 26.8 pg (28.0-34.0); Mean Corpuscular Volume 86.1 fl (81-99); Mean Platelet Volume 9.5 fL (7.4-10.4); Monocytes # 0.6 10^3/uL (0.2-0.9); Monocytes % 5.3 %; Neutrophils # 7.49 10^3/uL (1.8-7.7); Neutrophils % 64.2 %; Nucleated Red Blood Cells % 0 %; Platelet Count 377 10^3/cmm (130-400); Red Blood Count 3.88 10^6/uL (4.1-5.3); Red Cell Distribution Width 14.6 % (12.1-15.1); White Blood Count 11.7 10^3/uL (4.0-10.0)
[2022-07-06 05:33] LABS: Blood Urea Nitrogen 14 mg/dL (6-20); Calcium 7.9 mg/dL (8.5-10.5); Carbon Dioxide 25 mmol/L (22-29); Chloride 105 mmol/L (98-107); Glomerular Filtration Rate 91.3 mL/min (90-130); Glucose 89 mg/dL (65-115); Osmolality Calculated 288 mOsm/kg (285-295); Sodium 139 mmol/L (136-145); Vancomycin Trough 11.3 ug/mL (10-15)
[2022-07-06] MEDS: vancomycin 1,000 MG in sodium chloride 0.9% 250 ML 250 MG IV (06:33)
[2022-07-06] MEDS: heparin 5,000 unit/mL INJ 1 mL 5000 UNIT SUBCUT (06:39)
--- NOTE | 2022-07-06 07:05 | PC.NURSE ---
Bedside report performed by Stephanie WANG and this nurse at this time.
[2022-07-06 08:00] VITALS: BP 147/84; PULSE 68; RESP 16; TEMP 36.6; O2SAT 92
[2022-07-06] MEDS: piperacillin-tazobactam 3.375 GM in sodium chloride 0.9% (plus) 50 ML IV (08:07)
[2022-07-06] MEDS: buPROPion XL (24 HR) 150 mg Tablet PO (08:10)
[2022-07-06] MEDS: fluoxetine 20 mg Capsule 40 MG PO (08:13)
[2022-07-06] MEDS: sodium chloride 0.9% 1,000 ML 75 ML IV (08:25)
[2022-07-06 08:57] VITALS: PULSE 73; RESP 18; O2SAT 95
[2022-07-06] MEDS: ipratropium-albuterol 3 mL Neb INHALATION (08:57)
[2022-07-06 09:05] VITALS: PULSE 81
--- NOTE | 2022-07-06 10:35 | P.DS_ITS ---
Discharge Providers Date of Admission: 07/04/22 19:44 Date of Discharge: July 06, 2022 Attending Provider at Admission: Yadira Mariano MD Attending Provider at Discharge: Yadira Mariano MD Primary Care Provider: Red Blanco MD Diagnoses at Discharge Discharge Diagnosis (1) Community acquired pneumonia: Status: Acute (2) Asthma with exacerbation: Status: Resolved (3) Asthma: Status: Acute (4) Depression: Status: Acute (5) Hypoxia: Status: Resolved (6) Oxygen dependent: Status: Resolved (7) Pleuritic chest pain: Status: Resolved Reason for Visit Reason for Visit: sob Brief History: Karoline Almaguer is a 42 year old female with past medical history of depression, asthma presented to the hospital with complaint of pain from a pulled possible that kept getting worse and having shortness of breath.? She says [place] and went to bed Sunday night and when she woke up she felt she had a pulled muscle on the left side.? He states it hurts every time she takes a deep breath and the pain has gotten worse and worse.? She went to see her primary care doctor and a muscle relaxer was given to her.? 3 days later it became even worse she went back to the doctor and was given a chest x-ray which showed a pleural effusion.? She was given levofloxacin for 7 days for presumed pneumonia.? She was also given an appointment with a livestock brands inspector which she will be seeing next week on .? He says today she became very very short of breath and decided to come to the ER.? In the ER she is requiring 4 L nasal cannula oxygen.? Chest x-ray does show increased pleural effusion.? CTA chest was done to rule out PE which showed moderate left pleural effusion that has mildly increased in size when compared to prior study.? There is adjacent compressive atelectasis and/or pneumonia.? There is also trace right pleural ef fusion with adjacent compressive atelectasis or pneumonia.? Centrilobular emphysematous changes in bilateral lungs.? Patient does have a history of asthma diagnosed by her primary care doctor however has not had any formal PFTs done.? She even denies that she has asthma but is listed in her chart and patient is on albuterol and Symbicort at home.? Of note patient also had abdomen CT done on June 21 which showed subsegmental consolidation and groundglass infiltrates in lingula left lower lobe and right middle lobe.? There was also a small left pleural effusion present at that time.? WBC count 10.8, ABG showed 7.4/40.4/64.7/27.1.? Creatinine 0.6, lactic acid 2.1, ALT 39, alkaline phosphatase 126, albumin 3.8. Hospital Course Hospital Course She was admitted shortness of breath and pleuritic chest pain likely due to pneumonia versus underlying worsening pleural effusion. She was recently treated as an outpatient by her primary care doctor. Please see HPI for details. Suspicion was for parapneumonic effusion. Thoracentesis was performed and 150 cc was removed from left pleural space exudative by lights criteria. Empyema ruled out. Pleural fluid glucose 75. pH 8. Patient did require oxygen on admission however at discharge she did not qualify for oxygen and was saturating well on room air. She says that symptom payne she felt 100% better and was very happy. Procalcitonin was 0.02. Blood cultures negative to date. Patient will follow-up with pulmonology at discharge. She may require a repeat imaging at some point to reevaluate. She also had a history of underlying asthma however she says she was never formally diagnosed. She may benefit from PFTs as well. Since patient is clinically and symptomatically better we will discharge her home in stable condition at this time on room air. She will complete 14 days of Augmentin at discharge. Discussed with the patient to come back to the hospital if she has any worsening of her symptoms or develops any new symptoms. She demonstrated understanding. She will be discharged home in stable condition at this time. Physical Exam Narrative: General: Alert oriented x3, patient seen sitting up in bed on room air HEENT: Normocephalic, atraumatic, EOMI, breathing comfortably with no acute respiratory distress. Cardio: Regular rate rhythm, normal S1-S2, Respiratory: Mainly clear to auscultation b/l GI: Abdomen soft, nontender, nondistended, bowel sounds + Behavior: Appropriate and cooperative Extremities: No edema noted. Discharge Data Studies Completed and Pending Completed Studies During Hospitalization Category Date Time Status CT angio chest PE protcl [id number] Stat Cat Scan 07/04/22 15:48 Completed XR chest 1V portable [id number] Stat Exams 07/04/22 13:20 Completed XR chest 1V portable [id number] Urgent Exams 07/05/22 14:22 Completed CV. echo complete* [id number] Routine Ultrasound 07/05/22 08:31 Completed US thoracentesis [id number] Routine Ultrasound 07/05/22 18:27 Completed Pending at discharge Category Date Time Status Blood Culture Routine Lab 07/04/22 18:55 Results Sputum Culture and Gram Stain Stat Lab 07/04/22 18:26 Uncollected Radiology Impressions Chest CTA 07/04/22 15:48 IMPRESSION: 1. Moderate left pleural effusion has mildly increased in size when compared to the prior study. There is adjacent compressive atelectasis and or pneumonia. 2. Trace right pleural effusion with adjacent compressive atelectasis and or pneumonia. 3. There are centrilobular emphysematous changes in the bilateral lungs. Chest X-Ray 07/05/22 14:22 IMPRESSION: Decreased opacity at the left lung base consistent with decreasing pleural fluid and/or adjacent atelectasis. Thoracentesis Ultrasound 07/05/22 18:27 IMPRESSION: 1. Uncomplicated ultrasound-guided LEFT thoracentesis. 2. 150 cc serous bloody fluid removed and sent for requested diagnostic tests Laboratory Results WBC 11.7 10^3/uL (4.0-10.0) H 07/06/22 04:56 RBC 3.88 10^6/uL (4.1-5.3) L 07/06/22 04:56 Hgb 10.4 g/dL (11.5-15.3) L 07/06/22 04:56 Hct 33.4 % (37.0-47.0) L 07/06/22 04:56 MCV 86.1 fl (81-99) 07/06/22 04:56 MCH 26.8 pg (28.0-34.0) L 07/06/22 04:56 MCHC 31.1 g/dL (30.0-36.0) 07/06/22 04:56 RDW 14.6 % (12.1-15.1) 07/06/22 04:56 Plt Count 377 10^3/cmm (130-400) 07/06/22 04:56 MPV 9.5 fL (7.4-10.4) 07/06/22 04:56 Neut % (Auto) 64.2 % 07/06/22 04:56 Lymph % (Auto) 29.2 % 07/06/22 04:56 [place] % (Auto) 5.3 % 07/06/22 04:56 Eos % (Auto) 0.3 % 07/06/22 04:56 Baso % (Auto) 0.5 % 07/06/22 04:56 Neut # (Auto) 7.49 10^3/uL (1.8-7.7) 07/06/22 04:56 Lymph # (Auto) 3.4 10^3/uL (0.8-4.8) 07/06/22 04:56 [place] # (Auto) 0.6 10^3/uL (0.2-0.9) 07/06/22 04:56 Eos # (Auto) 0.0 10^3/uL (0.0-0.8) 07/06/22 04:56 Baso # (Auto) 0.1 10^3/uL (0.0-0.1) 07/06/22 04:56 Nucleated RBC % (auto) 0 % 07/06/22 04:56 Total Counted Not Reportable 07/05/22 14:15 Nucleated RBCs # 0.0 /100WBC 07/06/22 04:56 Specimen Type Arterial 07/04/22 15:34 Sample Site Radial, right 07/04/22 15:34 ABG pH 7.44 (7.35-7.45) 07/04/22 15:34 ABG pCO2 40.4 mmHg (35-45) 07/04/22 15:34 ABG pO2 64.7 mmHg (80.0-100.0) L 07/04/22 15:34 ABG HCO3 27.1 mmol/L (22-26) H 07/04/22 15:34 ABG O2 Saturation 93.7 07/04/22 15:34 ABG Base Excess 2.6 mmol/L (-2.0-2.0) H 07/04/22 15:34 [place] Test Pos 07/04/22 15:34 A-a O2 Gradient 14.2 mmHg (5-10) H 07/04/22 15:34 Hematocrit 40.4 % (37-47) 07/04/22 15:34 Hgb O2 Saturation 88.7 % (95-100) L 07/04/22 15:34 Carboxyhemoglobin 4.9 %THgb (0.4-20.1) 07/04/22 15:34 Methemoglobin 0.5 % (0.4-1.5) 07/04/22 15:34 Total Hemoglobin 13.2 g/dL (12-16) 07/04/22 15:34 Sodium 140.0 mmol/L (131-143) 07/04/22 15:34 Potassium 4.3 mmol/L (3.5-5.0) 07/04/22 15:34 Glucose 90.0 mg/dL (70-115) 07/04/22 15:34 Ionized Calcium 1.2 mmol/L (1.1-1.4) 07/04/22 15:34 O2 Delivery Device Nc 07/04/22 15:34 O2 Liters/Min 3.0 % 07/04/22 15:34 FiO2 32.0 % 07/04/22 15:34 Mainframe Software Developer ID glc 07/04/22 15:34 Sodium 139 mmol/L (136-145) 07/06/22 04:56 Potassium 4.0 mmol/L (3.5-5.1) 07/06/22 04:56 Chloride 105 mmol/L (98-107) 07/06/22 04:56 Carbon Dioxide 25 mmol/L (22-29) 07/06/22 04:56 Anion Gap 13.0 (5-19) 07/06/22 04:56 BUN 14 mg/dL (6-20) 07/06/22 04:56 Creatinine 0.7 mg/dL (0.5-0.9) 07/06/22 04:56 GFR Calculation 91.3 mL/min (90-130) 07/06/22 04:56 Glucose 89 mg/dL (65-115) 07/06/22 04:56 Calculated Osmolality 288 mOsm/kg (285-295) 07/06/22 04:56 Lactic Acid 1.4 mmol/L (0.5-2.2) 07/05/22 13:58 Lactic Acid (Sepsis) 4.2 mmol/L (0.5-2.2) H* 07/04/22 21:35 Calcium 7.9 mg/dL (8.5-10.5) L 07/06/22 04:56 Magnesium 2.2 mg/dL (1.7-2.3) 07/05/22 05:22 Total Bilirubin 0.2 mg/dL (0.15-1.2) 07/05/22 05:22 AST 20 U/L (0-32) 07/05/22 05:22 ALT 38 U/L (0-33) H 07/05/22 05:22 Alkaline Phosphatase 118 U/L (35-105) H 07/05/22 05:22 Lactate Dehydrogenase 165 U/L (135-214) 07/05/22 05:22 NT-Pro-B Natriuret Pep 40 pg/mL (0-125) 07/04/22 18:55 Total Protein 6.3 g/dL (6.6-8.7) L 07/05/22 05:22 Albumin 3.4 g/dL (3.5-5.2) L 07/05/22 05:22 Globulin 2.9 g/dL (1.3-4.6) 07/05/22 05:22 Procalcitonin 0.02 ng/mL (0-0.5) 07/04/22 18:55 TSH 0.33 uIU/mL (0.27-4.20) 07/04/22 18:55 Pleural Color Yellow (Pale Yellow) H 07/05/22 14:15 Pleural Appearance Clear (CLEAR) 07/05/22 14:15 Pleural pH 8.00 (6.5-7.5) H 07/05/22 14:15 Pleural Spec [place] 1.005 07/05/22 14:15 Pleural WBC 3702.000 /uL (0-1000) H 07/05/22 14:15 Pleural RBC 83.000 10^3/uL 07/05/22 14:15 Pleural Mononuc # Auto 3.460 10^3/uL 07/05/22 14:15 Pleural Other Cells Not Reportable 07/05/22 14:15 Pleural Polynuclear % 7 % 07/05/22 14:15 Pleural Polynuclear # 0.242 10^3/uL 07/05/22 14:15 Pleural Mononuclear % 93 % 07/05/22 14:15 Pleural Other Cells Lt Left lung 07/05/22 14:15 Pleural Total Protein 3.9 g/dL 07/05/22 14:15 Pleural Albumin 2.4 g/dL 07/05/22 14:15 Pleural LDH 241 U/L 07/05/22 14:15 Pleural Cholesterol 111 mg/dL 07/05/22 14:15 Pleural Triglycerides 79 mg/dL 07/05/22 14:15 Vancomycin Trough 11.3 ug/mL (10-15) 07/06/22 04:56 Coronavirus 229E (PCR) Not detected (NOT DETECT) 07/05/22 00:30 Influenza Type A Ag negative (Negative) 07/05/22 00:30 Influenza Type B Ag negative (Negative) 07/05/22 00:30 SARS-CoV-2 (PCR) Not detected (NOT DETECT) 07/05/22 00:30 Path Cons w/Slide Yes 07/05/22 14:15 Pathology Message Yes 07/05/22 14:15 Vitals Last Vital Signs Temp 97.9 F 07/06/22 08:00 Pulse 81 07/06/22 09:05 Resp 18 07/06/22 08:57 BP 147/84 07/06/22 08:00 Pulse Ox 95 07/06/22 08:57 O2 Del Method 07/06/22 08:57 O2 Flow Rate 2 07/05/22 15:18 Discharge Plan Discharge Patient Disposition: Home Condition: Stable Prescriptions: New amoxicillin-pot clavulanate 875-125 mg tablet 1 tab PO BID 12 Days Qty: 24 0RF Continued budesonide-formoterol [Symbicort] 160-4.5 mcg/actuation HFA aerosol inhaler 2 puff inhalation BID fluoxetine 40 mg capsule 40 mg PO DAILY hydroxyzine pamoate 50 mg capsule 50 - 100 mg PO BEDTIME PRN (Reason: Itching) propranolol 20 mg tablet 20 mg PO TID PRN (Reason: Hypertension) bupropion HCl 150 mg tablet extended release 24 hr 150 mg PO DAILY hydrocodone-acetaminophen 5-325 mg tablet 1 tab PO Q6H PRN (Reason: pain) Qty: 20 0RF Discontinued levofloxacin 750 mg tablet 750 mg PO DAILY Discharge Orders: Discharge Order (Routine); Ordered 07/06/22 Ordered By: Yadira Mariano Referrals: Datar,Samuel Gama MD [Physician] - 07/13/22 9:00 am Red Blanco MD [Primary Care Provider] - 07/14/22 10:30 am Discharge Diet: Regular Discharge Activity: Increase activity as tolerated Patient Instructions: Amoxicillin/Clavulanate Potassium (By mouth), Pneumonitis (DC), Opioid Safety Activity Restrictions/Additional Instructions: Please return to ER if you develop worsening symptoms or have development of new symptoms. Be sure to follow up with your pulmonology appointment next week on . Discharge Attestations Time Spent in Discharge Care*: less than 30 min Quality Metrics Clinical Quality Measures [ No reported AMI, CVA or VTE this stay] Coding Level of Care Code Acute Code for g Fwd Diagnoses Community acquired pneumonia J18.9 Asthma with exacerbation J45.901 Asthma J45.909 Depression F32.A Hypoxia R09.02 Oxygen dependent Z99.81 Pleuritic chest pain R07.81
[2022-07-06 11:30] VITALS: BP 129/70; PULSE 74; RESP 18; TEMP 36.5; O2SAT 92
[2022-07-06 12:00] VITALS: BP 129/70; PULSE 74; RESP 18; TEMP 36.5; O2SAT 92
--- NOTE | 2022-07-06 12:22 | PC.CHAP ---
Pastoral Care Encounter/Spiritual Assessment Type of Contact [] Declined social work manager visit [] Patient/Family/Request visit [] Outpatient visit [] Follow-up visit [] Physician referral [] Code/Alert [x] Routine visit [] Staff referral [] Actively dying [] Patient sleeping [] Family support [] [] Out of room [] Palliative care [x] [] Receiving care in room [] Pre-surgical visit [] Trauma [] Long length of stay [] ICU visit [] Other: Relational/Emotional Strength [x] Patient feels connected with others/family/visitors/staff [] Distress [] Loneliness/isolation [] Abandonment Spirituality of Patient [x] Person of Minnie [] Attends Christianity of their Minnie [x] Believes in Prayer [] Reads Bible or Spiritism materials [] There are Spiritual issues to be addressed [place] Interventions [x] Prayer [x] Active listening [x] Non-anxious presence [x] Spiritual/emotional support [x] Crisis/trauma care [x] Spiritual counseling [] Bereavement support [] Provided bereavement packet [] Provided Bible/devotional materials [] Provided toy/stuffed animal, coloring book to patient or family member [] Provided Communion [] Anointing/[place] [] Salvation [x] Completed spiritual assessment [] Other: Impact on Illness or Injury [] Angry [] Fearful [] Anxious [] Often cries [] Exhaustion [] Unable to work [] Unable to attend holiness [] Unable to walk/stand [] Unable to read [] Unable to drive [] Unable to eat/drink [] Unable to sleep [] Unable to be with family [] Patient intubated [] Other: Summary feeling better has a good attitude is going home Time spent with patient 10 mins
--- NOTE | 2022-07-06 12:36 | PC.NURSE ---
IV removed intact. Patient tolerated well. Patient is A&Ox3. Respirations even and non-labored on room air. Reviewed discharge with patient at this time. Patient verbalized understanding of discharge instructions. Patient ambulated to private car.
== END 2022-07-06 11:30 | disposition home or self-care (01) | DRG 186 ==
LOC: ER 14:49 → MEDSURG 19:44
PROVIDERS: Admitting Provider Internal Medicine; Emergency Provider Family Medicine; PCP Family Medicine; Visit Provider Internal Medicine
DX: J90 Pleural effusion, not elsewhere classified (principal); J18.9 Pneumonia, unspecified organism; F32.A Depression, unspecified; Z79.891 Long term (current) use of opiate analgesic
CPT/HCPCS: 32555; 36415; 36600; 71045; 71275; 80048; 80051; 80053; 80202; 80503; 82042; 82330; 82465; 82805; 82945; 83605; 83615; 83735; 83880; 83986; 84145; 84157; 84315; 84443; 84478; 85025; 86403; 87040; 87449; 87635; 87641; 87804; 89050; 93306; 94640; 94664; 96365; 96366; 96367; 96372; 96375; 99285; J1644; J2270; J2543; J2930; J3370; J7030; J7050; Q9967

== ENCOUNTER → 2022-07-13 10:38 | Outpatient (BNVA) | payer MEDICAID, SELFPAY | PROVIDERS: PCP Family Medicine; Visit Provider Internal Medicine Pulmonary Disease | DX: J18.9 Pneumonia, unspecified organism (principal); J98.11 Atelectasis | CPT/HCPCS: 71046 ==

== ENCOUNTER 2022-08-14 09:34 | Outpatient (CLI) | payer MEDICAID, SELFPAY ==
[2022-08-14 09:51] VITALS: PULSE 67; RESP 18; O2SAT 97
[2022-08-14] MEDS: albuterol 2.5 mg/3 mL Neb INHALATION (09:51)
[2022-08-14 09:56] VITALS: PULSE 71
[2022-08-14 10:10] VITALS: BP 133/93; BP 138/91
== END 2022-08-14 09:35 | disposition home or self-care (01) ==
PROVIDERS: PCP Family Medicine; Visit Provider Internal Medicine Pulmonary Disease
DX: F17.200 Nicotine dependence, unspecified, uncomplicated (principal); J43.9 Emphysema, unspecified; J45.909 Unspecified asthma, uncomplicated
CPT/HCPCS: 94060; 94618; 94726; 94729; J7613

== ENCOUNTER 2022-08-29 08:33 | Outpatient (CLI) | payer MEDICAID, SELFPAY ==
--- NOTE | 2022-08-29 08:30 | CT_ITS ---
WS: [id number] CT CHEST TECHNIQUE: Noncontrast CT of the chest with coronal and sagittal reformatted images. CLINICAL INFORMATION: resolution of pneumonia COMPARISON: CTA chest July 04, 2022 DLP: 325.[address] scans at [facility] use at least one of these dose optimization techniques: automated e xposure control; mA and/or kV adjustment per patient size (includes targeted exams where dose is matc hed to clinical indication); or iterative reconstruction. FINDINGS: Moderate chronic emphysematous changes. No acute pulmonary infiltrates. No focal pneumonia or pleural fluid. No mediastinal or hilar lymphadenopathy. Cholecystectomy clips. Adrenal glands are normal. No axillary lymphadenopathy. Previously described LEFT pleural effusion with lower lobe pneumonia has e ssentially resolved compared to previous. No new pulmonary infiltrates. 6 mm nodule RIGHT lower lobe. Subsegmental atelectasis in the LEFT lower lobe and lingula. No other s uspicious pulmonary parenchymal opacities. Previously described RIGHT pleural effusion has resolved. CT/CT chest wo con [id number] IMPRESSION: 1. Previously described LEFT lower lobe pneumonia and pleural fluid has resolv ed. Small amount of subsegmental atelectasis LEFT lower lobe and lingula. 2. Tiny RIGHT pleural effusion has resolved. 3. 6 mm noncalcified nodule RIGHT lower lobe laterally not previously visualiz ed. Recommend 12 month follow-up. 4. No mediastinal or hilar lymphadenopathy. 5. Moderate chronic emphysematous changes. 6. Cholecystectomy clips. 7. No other interval changes.
== END 2022-08-29 08:34 | disposition home or self-care (01) ==
LOC: RAD 08:35
PROVIDERS: PCP Family Medicine; Visit Provider Internal Medicine Pulmonary Disease
DX: J18.9 Pneumonia, unspecified organism (principal); J45.909 Unspecified asthma, uncomplicated; R06.02 Shortness of breath
CPT/HCPCS: 71250

== ENCOUNTER → 2022-10-09 09:30 | Outpatient (BNVA) | payer MEDICAID, SELFPAY | PROVIDERS: PCP Family Medicine; Visit Provider Internal Medicine Pulmonary Disease | DX: J30.2 Other seasonal allergic rhinitis (principal) | CPT/HCPCS: 36415; 82785; 86003 ==

== ENCOUNTER → 2022-11-06 09:17 | Outpatient (BNVA) | payer MEDICAID, SELFPAY | PROVIDERS: PCP Family Medicine; Visit Provider Student in an Organized Health Care Education/Training Program | DX: M75.41 Impingement syndrome of right shoulder (principal) | CPT/HCPCS: 73030 ==

== ENCOUNTER 2022-12-10 08:30 | Emergency (ER) | payer MEDICAID, SELFPAY ==
[2022-12-10 08:37] VITALS: BP 147/102; PULSE 98; RESP 15; TEMP 36.8; O2SAT 98
--- NOTE | 2022-12-10 08:41 | XRR_ITS ---
PROCEDURE INFORMATION: Exam: XR Right Wrist Exam date and time: 12/10/2022 9:10 AM Age: 42 years old Clinical indication: Injury or trauma; Other: Kicked by cow, pain; Blunt trauma (contusions or hematomas); Wrist; Right TECHNIQUE: Imaging protocol: Radiologic exam of the right wrist. Views: 3 or more views. COMPARISON: No relevant prior studies available. FINDINGS: Bones/joints: The carpal bones maintain normal alignment. No dislocation identified. No abnormality at the radiocarpal or ulnocarpal joints. No fracture identified. Soft tissues: Unremarkable. XR/XR wrist RT min 3V* [id number] IMPRESSION: No evidence of fracture or dislocation.
--- NOTE | 2022-12-10 08:41 | ED_ITS ---
HPI - Extremity Problem General: Chief complaint: Extremity Injury, Upper Stated complaint: Right Hand injury Time Seen by Provider: 12/10/22 08:30 Source: patient Mode of arrival: ambulatory Limitations: no limitations History of Present Illness: 42 yr old female presents to the ER today for R wrist and hand pain after being kicked by a cow this am. Patient reports her hand was stuck between the cow and the metal dina. She reports pain with any movement of the thumb index finger or middle finger of the right hand. She has numbness and tingling in those fingers also. Patient reports any flexion or extension of the wrist is also bothering her. She reports some mild swelling and a couple small abrasions. Patient denies any prior injury to this hand or wrist. Review of Systems General: Reports: 10 or more systems reviewed and unremarkable except in HPI and below PFSH ED PFSH: Medical History Asthma Depression Social History Smoking and tobacco status: former smoker Quit status (tobacco): has quit using tobacco Year quit tobacco: 2022 Former quit date comment: 1ppd x 24 years Physical Exam Const: COMMON NORMALS: no acute distress, average body habitus, healthy appearing, alert and well nourished Resp: COMMON NORMALS: normal respiratory effort EFFORT & INSPECTION: Yes able to speak in complete sentences and No labored Cardio: COMMON NORMALS: regular rate, regular rhythm and No murmurs present (Cardio) RATE: regular rate RHYTHM: regular rhythm Extremity: RIGHT UPPER EXTREMITY: Yes wrist Right wrist: Yes inspection (small abrasions with mild swelling noted), Yes palpation (tender to palpation over carpal bones), Yes ROM (decreased ROM secondary to pain) and Yes neurovascular exam (intact with mild decreased sensation) and Yes hand & digits (pain with movement of R thumb, index and middle finger) Neuro: SENSORIUM/ORIENTATION: Yes alert Psych: COMMON NORMALS: mental status grossly normal, Normal thought process present and cooperative THOUGHT PROCESS: Normal thought process present Skin: COMMON NORMALS: no rashes or lesions noted and no wounds GENERAL SKIN EXAM: no rashes or lesions noted Course ED course: Patient presents to the ER today with right wrist and hand pain after being kicked by a cow this AM. We will get an x-ray in the ER at this time. Patient appears to be neurovascularly intact. Vital Signs: Vital signs: Vital Signs Temperature 98.2 F 12/10/22 08:37 Pulse Rate 82 12/10/22 09:44 Respiratory Rate 15 12/10/22 08:37 Blood Pressure 142/96 12/10/22 09:44 Pulse Oximetry 93 12/10/22 09:44 Oxygen Delivery Me thod Room Air 12/10/22 08:37 MDM - Extremity (Nontraumatic) Medical Decision Making X-rays negative for acute fracture. Likely a contusion versus wrist sprain. Recommended patient go shrimp picker a Velcro wrist brace and also take anti- inflammatories x7 to 10 days. Apply ice 20 minutes on and 20 minutes off. If symptoms are not improving after 7 to 10 days, follow-up with PCP. 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 Given work note that for 7 days she should not do any lifting or use of her right hand at work. To have restrictions removed, patient needs to see PCP. Return to the ER with any new or worsening symptoms. Patient verbalized understanding and was in agreement with the treatment plan. Lab Data Radiology Impressions Wrist X-Ray 12/10/22 08:41 IMPRESSION: No evidence of fracture or dislocation. Critical Care Time Critical Care Time: Critical Care Time: No Discharge Plan Discharge Patient Disposition: Home Clinical Impression: Contusion of right wrist, initial encounter Condition: Stable Prescriptions: No Action fluoxetine 40 mg capsule 40 mg PO DAILY albuterol sulfate 90 mcg/actuation HFA aerosol inhaler 2 puff inhalation Q6H PRN Breztri Aerosphere 160-9-4.8 mcg/actuation HFA aerosol inhaler 2 inh inhalation BID Qty: 10.7 6RF Discharge Orders: Discharge ED (Routine); Ordered 12/10/22 Ordered By: Evette Shea Referrals: Red Blanco MD [Primary Care Provider] - Discharge Diet: Usual diet Discharge Activity: Limit activity as instructed Patient Instructions: Wrist Sprain (ED), Opioid Safety, Pain Management Activity Restrictions/Additional Instructions: Take anti-inflammatory x7 to 10 days as discussed. Get Velcro wrist brace at the store and wear x3 to 5 days for support. Ice 20 minutes on and 20 and soft as discussed. Follow-up with PCP in 7 to 10 days if no improvement. Return to the ER with new or worsening symptoms. Stand Alone Forms: Work/School Release Coding Level of Care Code ED Automotive Project Engineer for [employer]
[2022-12-10 09:44] VITALS: BP 142/96; PULSE 82; O2SAT 93
[2022-12-10] MEDS: ketorolac 10 mg Tablet PO (09:44)
[2022-12-10 10:45] VITALS: BP 142/96; PULSE 82; O2SAT 93
== END 2022-12-10 10:46 | disposition home or self-care (01) ==
PROVIDERS: Emergency Provider Physician Assistant; PCP Family Medicine
DX: S60.211A Contusion of right wrist, initial encounter (principal); Z87.891 Personal history of nicotine dependence; W55.22XA Struck by cow, initial encounter
CPT/HCPCS: 73110; 99283

== ENCOUNTER 2023-01-29 09:19 | Outpatient (CLI) | payer MEDICAID, SELFPAY ==
--- NOTE | 2023-01-29 09:45 | MR_ITS ---
WS: [id number] MRI RIGHT SHOULDER NONCONTRAST TECHNIQUE: Sagittal T2, coronal T1, T2 and proton density imaging. Axial gradient PDE imaging. CLINICAL INFORMATION: PAIN COMPARISON: None. FINDINGS: Mild degenerative arthritis AC joint with slight subacromial fluid. Mild downsloping acromion. Mild s ynovial thickening at the AC joint. Mild narrowing of the subacromial space. Tiny amount of tendinopathy in the distal anterior supraspinatus. Normal infraspinatus. Normal teres minor. Normal subscapularis. Subchondral cystic change in the anterior lateral humeral head. Biceps tendon appears intact within the bicipital groove. Normal intra-articular biceps tendon. [place] l subscapularis tendon. Normal biceps labral anchor. Normal glenoid. Coracoid is normal. IMPRESSION: 1. Mild degenerative arthritis AC joint with mild edema and slight subacromial fluid. Mild downslopi ng acromion. 2. Tendinopathy in the distal anterior supraspinatus. Rotator cuff is otherwise intact and normal in appearance. 3. Normal biceps tendon in the bicipital groove. 4. Degenerative subchondral cystic change in the anterior lateral humeral head.
== END 2023-01-29 09:20 | disposition home or self-care (01) ==
PROVIDERS: PCP Family Medicine; Visit Provider Student in an Organized Health Care Education/Training Program
DX: M75.41 Impingement syndrome of right shoulder (principal); M19.011 Primary osteoarthritis, right shoulder; M67.911 Unspecified disorder of synovium and tendon, right shoulder
CPT/HCPCS: 73221

== ENCOUNTER 2023-02-12 12:27 | Outpatient (CLI) | payer MEDICAID, SELFPAY ==
[2023-02-12 13:09] LABS: Add Urine Microscopic? NO; Charge for UA Resulting for Rev
[2023-02-12 13:14] LABS: Basophils # 0.1 10^3/uL (0.0-0.1); Basophils % 0.6 %; Eosinophils # 0.1 10^3/uL (0.0-0.8); Eosinophils % 1.1 %; Hematocrit 37.6 % (36-47); Lymphocytes # 2.8 10^3/uL (0.8-4.8); Lymphocytes % 29.8 %; Mean Corpuscular HGB Conc 33.2 g/dL (30-55); Mean Corpuscular Hemoglobin 28.1 pg (27-33); Mean Corpuscular Volume 84.5 fl (85-98); Mean Platelet Volume 10.8 fL (7.4-10.4); Monocytes # 0.8 10^3/uL (0.2-0.9); Monocytes % 8.5 %; Neutrophils # 5.66 10^3/uL (1.8-7.7); Neutrophils % 59.7 %; Nucleated Red Blood Cells % 0 %; Platelet Count 289 10^3/cmm (157-399); Red Blood Count 4.45 10^6/uL (3.85-5.65); Red Cell Distribution Width 15.4 % (12.1-15.1); White Blood Count 9.49 10^3/uL (3.29-11.43)
[2023-02-12 13:16] LABS: Bilirubin Urine Neg (Negative); Blood Urine Neg (Negative); Glucose Urine UA Norm (Normal); Ketones Urine Negative (Negative); Leukocyte Esterase Urine Negative (Negative); Nitrate Urine Negative (Negative); Protein Urine Neg (Negative); Urine Appearance Clear (CLEAR); Urine Color Yellow (Yellow); Urobilinogen Urine Norm (Negative); pH Urine 6 (5-7)
[2023-02-12 13:32] LABS: Alanine Aminotransferase 10 U/L (0-33); Albumin Level 4.3 g/dL (3.5-5.2); Alkaline Phosphatase 65 U/L (35-105); Anion Gap 13.9 (5-19); Aspartate Amino Transferase 15 U/L (0-32); Blood Urea Nitrogen 8 mg/dL (6-20); Carbon Dioxide 24 mmol/L (22-29); Chloride 105 mmol/L (98-107); Globulin 2.6 g/dL (1.3-4.6); Glomerular Filtration Rate 91.3 mL/min (90-130); Glucose 95 mg/dL (65-115); Osmolality Calculated 286 mOsm/kg (285-295); Potassium 3.9 mmol/L (3.5-5.1); Sodium 139 mmol/L (136-145); Total Bilirubin 0.2 mg/dL (0.15-1.2); Total Protein 6.9 g/dL (6.6-8.7)
== END 2023-02-12 12:28 | disposition home or self-care (01) ==
PROVIDERS: PCP Family Medicine; Visit Provider Student in an Organized Health Care Education/Training Program
DX: Z01.818 Encounter for other preprocedural examination (principal)
CPT/HCPCS: 36415; 80053; 81003; 85025

== ENCOUNTER 2023-02-28 07:39 | Day surgery (SDC) | payer MEDICAID, SELFPAY ==
[2023-02-27 14:47] VITALS: BMI 29.7
[2023-02-28] VITALS (9 sets, daily range): BP systolic 128–160; BP diastolic 90–101; PULSE 71–100; RESP 14–20; TEMP 36.1; O2SAT 93–98
[2023-02-28] MEDS: acetaminophen 1,000 MG/100 ML PIGGYBACK 400 MG IV (08:03)
[2023-02-28] MEDS: ketorolac 30 mg/mL INJ IVP (08:03)
[2023-02-28] MEDS: scopolamine 1.5 Patch 1 PATCH TRANSDERMA (08:04)
[2023-02-28] MEDS: midazolam 1 mg/mL INJ 2 mL 2 MG IVP (08:30)
[2023-02-28] MEDS: HYDROmorphone 1 mg/mL INJ 1 mL 0.5 MG IVP (08:54)
[2023-02-28] MEDS: sodium chloride 0.9% 1,000 ML 30 ML IV (09:05)
--- NOTE | 2023-02-28 09:18 | P.ANESASSM_ITS ---
Pre-Anesthetic Assessment Height/Weight: Height 1.7 m Weight 86.183 kg Temp Pulse Resp BP Pulse Ox O2 Del Method 97 F L 71 16 141/99 98 Room Air 02/28/23 07:44 02/28/23 07:44 02/28/23 07:44 02/28/23 07:44 02/28/23 07:44 02/28/23 07:56 Operation Date: 02/28/23 09:25 Proposed Procedures p Shoulder Arthroscopy(Right) - Gabriel Lilli, DO s Subacromial Decompression(Right) - Gabriel Coconino, DO s AC Joint Resection Acromioclavicular Joint Resection(Right) - Gabriel Lilli, DO Familial anesthetic complications: None Was Beta Gus taken within 24 hours: N/A Was Clonidine taken within 24 hours: N/A Last intake: Intake Last Liquid Date 02/27/23 Last Liquid Time 23:30 Last Solid Date 02/27/23 Last Solid Time 19:00 Social No alcohol and No tobacco Former Smoker Exam alert and oriented x 3 Airway Submandibular: within normal limits Cervical ROM: within normal limits Mallampati: Class II Dentition: loose (#12) and other (Missing #11) Pulmonary Asthma and Chronic Obstructive Pulmonary Disease Emphysema CV/HEM None reported None reported Hepatic None reported GI None reported Metabolic None reported Neuropsych Depression Anesthetic Plan ASA status: 2 Anesthesia: Eval. for regional block and General Risk of > 500 ml blood loss (7ml/kg in children): No Medications/Allergies Home Medications Medication Instructions Recorded Confirmed Last Taken Type fluoxetine 40 mg capsule 40 mg PO DAILY 05/19/22 02/27/23 02/27/23 History albuterol sulfate 90 mcg/actuation 2 puff inhalation Q6H PRN 07/13/22 02/27/23 02/28/23 History aerosol inhaler Shortness Of Breath budesonide 160 mcg-glycopyr 9 2 inh inhalation BID #10.7 grams 10/09/22 02/27/23 02/28/23 Rx mcg-formot 4.8 mcg/actuation HFA inhaler (Breztri Aerosphere) bupropion HCl 150 mg 24 hr tablet, 150 mg PO QAM 02/09/23 02/27/23 02/27/23 History extended release Allergies Allergy/AdvReac Type Severity Reaction Status Date / Time No Known Allergies Allergy Verified 02/28/23 07:50 Current Medications Generic Name Dose Route Start Last Admin Trade Name Freq PRN Reason Stop Dose Admin Hydromorphone HCl 0.5 mg 02/28/23 07:44 02/28/23 08:54 Hydromorphone 1 Mg/Ml Inj 1 Ml IVP 0.5 mg ONCE PRN Administration For preop pain/anxiety Sodium Chloride 1,000 mls @ 30 mls/hr 02/28/23 07:45 02/28/23 09:05 Sodium Chloride 0.9% IV 03/01/23 07:44 30 mls/hr .Q24H ABDIRASHID Administration Midazolam HCl 2 mg 02/28/23 07:44 02/28/23 08:30 Midazolam 1 Mg/Ml Inj 2 Ml IVP 2 mg ONCE PRN Administration Preop Anxiety PFSH Anesthesia Medical History Asthma Depression Social History Smoking and tobacco status: former smoker Quit status (tobacco): has quit using tobacco Year quit tobacco: 2022 Former quit date comment: 1ppd x 24 years Data Anesthesia Cardiac Studies: Echocardiogram 07/05/22 Anesthesia Procedures Nerve Block Nerve Block 1: Main Anesthesia: general anesthesia Time Out Performed: Yes Consent: requested by attending/covering physician, risks and benefits reviewed and patient agrees to proceed Nerve block location: interscalene Anesthesia monitors applied: pulse oximetry, EKG, BP cuff and oxygen Nerve block position: semi sitting Anesthetic Used: ropivicaine 0.5% Amount of anesthesia used (mL): 30 Ultrasound used to: recognize landmarks, visualize and ID brachial plexus and visualize and ID interscalene groove Nerve Stimulator Used?: No Interscalene/Femoral BLK: 2 stimuplex 22 g needle used for position and inplane approach, visualize local anesthetic spread and no vascular puncture identified Injection: neg aspiration of heme Patient Tolerated Procedure: well Complications: none
--- NOTE | 2023-02-28 09:42 | W.PM.OPSUD ---
Surgery/Procedure H&P Update DATE OF PROCEDURE: February 28, 2023 DATE H&P PERFORMED: 02/09/23 H&P UPDATE INFORMATION: I have reviewed H&P completed within last 30 days, I have examined patient prior to procedure and No changes to prior documentation PREOP DIAGNOSIS: Right shoulder subacromial impingement, AC joint arthritis PRIMARY INDICATION FOR PROCEDURE: Right shoulder subacromial impingement, AC joint arthritis PLANNED PROCEDURE: Operation Date: 02/28/23 09:25 Proposed Procedures p Shoulder Arthroscopy(Right) - DO nirmala Worley Subacromial Decompression(Right) - DO nirmala Worley AC Joint Resection Acromioclavicular Joint Resection(Right) - Gabriel Reeder DO
[2023-02-28] MEDS: ceFAZolin 2,000 MG in sodium chloride 0.9% (plus) 50 ML 100 MG IV (10:07)
[2023-02-28] MEDS: EPINEPHrine 1 mg/mL INJ 2 MG XX (10:49)
--- NOTE | 2023-02-28 11:20 | P.OP_ITS ---
Operative Report Date of procedure: February 28, 2023 Surgeon: Gabriel Reeder DO Polymerization Supervisor: Ash Reeder PA-C PA was necessary for assistance in this case with execution of surgery to assist with rotator cuff repair and instrumentation as well as holding of arm and shoulder positioning. Also assist in wound closure. Procedure: Preop Diagnosis: Right shoulder pain Right shoulder subacromial impingement Right shoulder AC joint arthritis Post-op diagnosis:? Right?shoulder rotator cuff tear Right?shoulder AC joint arthritis Right?shoulder subacromial bursitis/impingement Procedure done: Right?shoulder diagnostic and surgical arthroscopy with arthroscopic rotator cuff repair(small) Right?shoulder diagnostic and surgical arthroscopy acromioclavicular joint resection Right?shoulder diagnostic and surgical arthroscopy subacromial decompression (acromioplasty and bursectomy) Surgeon: Gabriel Reeder DO Estimated blood loss: [5 ]mL IV fluids: See anesthesia record Implants: Arthrex 4.75 swivel lock Arthrex scorpion and suture tape Complications: None Condition: stable Disposition: same day Brief History: Patient been seen and worked up in the outpatient setting for right?shoulder pain.? Pt had an MRI which showed findings below.? Patient's failed conservative treatment and has weakness.? We talked about treatment options far as nonoperative and operative intervention..? We talked about risk benefits complication alternatives surgical nonsurgical treatment options.? Understanding risk of surgery pt agrees to proceed with surgical intervention.? All questions have been answered at this time.? Patient elects proceed with surgery and consent obtained in office. IMPRESSION: 1.? Mild degenerative arthritis AC joint with mild edema and slight subacromial fluid. Mild downsloping acromion. 2.? Tendinopathy in the distal anterior supraspinatus. Rotator cuff is otherwise intact and normal in appearance. 3.? Normal biceps tendon in the bicipital groove. 4.? Degenerative subchondral cystic change in the anterior lateral humeral head. Procedure: Patient seen evaluated in the preoperative holding area.? Consent reviewed and signed with patient.? Once again reviewed patient's MRI results as well as? planned surgical intervention.? Correct extremity marked.? Patient seen evaluated by anesthesia department received regional anesthesia.? Once ready for surgery was taken back to the operative suite.? Patient then subsequently underwent anesthesia per the anesthesia department was transported onto the OR table.? Patient was then placed into a lateral decubitus position with a beanbag and was appropriately secured to the bed.? All bony prominences well-padded.? Patient then had the RIght upper extremity was then prepped and draped in standard orthopedic fashion.? Patient received appropriate preoperative antibiotics.? Final timeout performed. The RIght upper extremity was then held in hanging from traction utilizing sterile technique.? Next started with standard diagnostic and surgical arthroscopy with posterior portal position introduced arthroscope into the glenohumeral joint.? Visualized the glenohumeral joint I then introduced a spinal needle within the rotator cuff interval to confirm appropriate anterior portal placement.? Once this was confirmed I then made my small incision and then introduced my arthroscopic shaver into the glenohumeral joint.? After thorough debridement biceps tendon was visible and intact with no tearing or inflammation.? Next I evaluated the subscapularis tendon which was intact and no evidence of tear. ?Next there was no significant labral tearing at biceps anchor and circumferential.? The glenohumeral joint was found to have grade 0-1 chondromalacia throughout.? Infrapatellar pouch was free of loose bodies from viewing the posterior portal.? Next a visualized the rotator cuff superiorly and there was found to be a small undersurface tearing of the supraspinatus tendon.?This completed my work within the glenohumeral joint all fluid was suctioned free of the joint.? ?Next I reintroduced the arthroscope posteriorly.? And went to the subacromial space.? I established my lateral working portal at the site of which my spinal needle was marking of the rotator cuff tear.? Thermal wand was then introduced laterally and then I subsequently performed extensive bursectomy of the subacromial space.? Patient had a large anterior bone spur.? At this point time I proceeded with my AC joint resection thermal wand was used and track to the anterior edge of the acromion and then tracked all the way to the AC joint.? Once identified the AC joint this was very arthritic in nature.? Thermal wand was placed anteriorly to establish appropriate plane for AC joint resection.? On ce appropriate margins and anterior inferior and anterior capsule was released I then introduced arthroscopic shaver and a bur and performed AC joint resection of both the acromion to cope plane at the AC joint and a distal clavicle resection was then performed totaling 1 cm in size and was confirmed.? This completed my AC joint resection and I then introduced the arthroscopic shaver laterally while continuing to view posteriorly.? I then performed an acromioplasty to complete my subacromial decompression prior to fixing the rotator cuff tear.? Next the arthroscopic shaver was then used to evaluate a significant tearing at the supraspinatus at the insertion. pt found to have small full thickness tear. Given the small size this did not need a medial and lateral row configuration as result my plan was for a horizontal mattress stitch with a single lateral row anchor.? As result I loaded and Arthrex scorpion with fiber tape and subsequently.? A horizontal mattress purchase appropriately spaced to the small tear of the supraspinatus tendon.? At this point in time and then introduced a shaver to debride the rotator cuff footprint and decorticate the footprint in preparation for repair, next I marked by swivel lock position.? Fiber tape was then loaded into a 4.75 swivel lock I then subsequently punched and then subsequently placement 4.75 swivel lock while maintaining appropriate tension and repair of rotator cuff and this was advanced with excellent fixation I then had a final confirmation of appropriate repair of the supraspinatus rotator cuff tendon tear.? Sutures were then cut with an arthroscopic suture cutter and subsequently evaluated the rotator cuff repair.? Repair was found to be satisfactory?shoulder was taken through range of motion and the repair moved as a unit with no evidence of loss of fixation. ?I then switched the arthroscope to the lateral portal to confirm this tension- free repair.? I took the?shoulder through range of motion and the rotator cuff repair was stable and moved as a unit. ?Next I then introduced the arthroscopic shaver posteriorly to complete my subacromial decompression appropriate complaining all the way up to the lateral edge of the acromion.? This completed the surgery.? All fluid was suctioned from the?shoulder.? All instruments were removed.? The lateral incision was then closed with nylon stitches.? As well as the portal sites closed with portal nylon stitches.? Xeroform 4 x 4's ABD and tape was then applied to the ?shoulder and was placed into a?shoulder abduction pillow sling for rotator cuff repair.? Patient was then awakened from anesthesia and then taken back to PACU in stable condition.? Patient tolerated procedure without any issues. Disposition: Patient taken back in stable condition recovering well.? Dressings on in place clean dry and intact.? Will be nonweightbearing to the Right upper extremity.? Follow rotator cuff repair protocol.? Patient to follow-up with me in the office in 2 weeks.? Patient will receive appropriate discharge instruction as well as pain medication postoperatively.? All questions answered.? We will contact the office for any questions or concerns.
--- NOTE | 2023-02-28 11:33 | W.PM.BPON ---
Date of Procedure: [February 28, 2023] Surgeon: [Dr. Lilli HARRELL] [employer] Supervisor(s): [Ash Reeder physician dental hygiene administrative assistant] Procedure(s) performed: [Right shoulder arthroscopy with subacromial decompression, AC joint resection and rotator cuff repair.] Findings of the procedure(s): [Right shoulder subacromial impingement, AC joint arthritis and rotator cuff repair] Estimated blood loss: [5 ml] Specimen(s) removed: [n/a] Post-operative diagnosis: [Right shoulder subacromial impingement, AC joint arthritis and rotator cuff repair]
--- NOTE | 2023-02-28 11:35 | PM.PACU ---
PACU note Narrative: Patient is a 42-year-old female who just underwent a right shoulder arthroscopy and rotator cuff repair. Patient transferred to PACU in stable condition. Pain is well controlled. shoulder Dressing on , dry and in place. Patient's operative arm is in a UltraSling. Patient somnolent but arousable. Patient's fingers are warm with good perfusion. Normal cap refill under 2 seconds. Unable to assess further range of motion/motor in arm due to sling. Unable to assess sensation due to residual localized anesthetic. Exam: somnolent, arousable Disposition: discharged
[2023-02-28] MEDS: HYDROcodone-acetaminophen 5-325 mg Tablet 1 TAB PO (13:04)
--- NOTE | 2023-02-28 16:05 | ANE.PACU2 ---
Inpatient post-anesthesia follow up: Airway intact: Yes Vital signs: Temperature 97.0 F Pulse Rate 80 Respiratory Rate 16 Blood Pressure 160/97 Pulse Oximetry 94 Oxygen Delivery Me thod Room Air Oxygen Flow Rate 6 Fraction of Inspir ed Oxygen Hydration adequate: Yes Nausea and vomiting: No Pain level: 1 Mental status: Baseline
== END 2023-02-28 13:15 | disposition home or self-care (01) ==
PROVIDERS: PCP Family Medicine; Visit Provider Student in an Organized Health Care Education/Training Program
PROC: (CPT 29805; principal; 2023-02-28 09:25)
PROC: (CPT 29826; 2023-02-28 09:25)
PROC: 0RSG0ZZ Reposition Right Acromioclavicular Joint, Open Approach (ICD-10-PCS; CPT 29824; 2023-02-28 09:25)
DX: M25.811 Other specified joint disorders, right shoulder (principal); M75.41 Impingement syndrome of right shoulder; M75.101 Unspecified rotator cuff tear or rupture of right shoulder, not specified as traumatic; M19.011 Primary osteoarthritis, right shoulder; Z87.891 Personal history of nicotine dependence; J44.9 Chronic obstructive pulmonary disease, unspecified
CPT/HCPCS: 29824; 29826; 29827; 81025; C1713; J0131; J0171; J0690; J1100; J1170; J1885; J2250; J2405; J2704; J2710; J2795; J3010; J3490; J7030

== ENCOUNTER 2023-07-05 18:55 | Emergency (ER) | payer MEDICAID, SELFPAY ==
[2023-07-05 19:02] VITALS: BP 170/134; PULSE 107; RESP 17; TEMP 37.2; O2SAT 96; BMI 28.1
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
[2023-07-05 19:14] VITALS: RESP 20; O2SAT 95
[2023-07-05] MEDS: ondansetron 4 MG Tablet PO (19:14)
[2023-07-05] MEDS: morphine 4 mg/mL SDV 1 mL IM (19:14)
[2023-07-05] MEDS: silver sulfadiazine cream 1% 50 gm 1 APPLIC TOPICAL (19:16)
[2023-07-05] MEDS: tetanus-dipt-pertussis 0.5 mL SDV IM (19:26)
[2023-07-05 19:57] VITALS: PULSE 88; O2SAT 98
== END 2023-07-05 20:23 | disposition home or self-care (01) ==
PROVIDERS: Emergency Provider Internal Medicine; PCP Family Medicine
DX: T23.261A Burn of second degree of back of right hand, initial encounter (principal); T23.161A Burn of first degree of back of right hand, initial encounter; X03.4XXA Hit by object due to controlled fire, not in building or structure, initial encounter; Z87.891 Personal history of nicotine dependence; Z23 Encounter for immunization
CPT/HCPCS: 90471; 90715; 96372; 99284; J2270; Q0162

== ENCOUNTER 2023-09-13 12:59 | Outpatient (CLI) | payer MEDICAID, SELFPAY ==
--- NOTE | 2023-09-13 13:00 | CT_ITS ---
WS: [id number] CT chest wo con [id number] HISTORY: f/u TECHNIQUE: Axial imaging performed through the thorax. Coronal and sagittal reformats are submitted. All CT scans at [facility] use at least one of these dose optimization techniques: automated exposure control; mA and/or kV adjustment per patient size (includes targeted exams where dose is mat ched to clinical indication); or iterative reconstruction. CONTRAST: None DLP: 546.82 mGy.cm COMPARISON: 08/29/2022, 07/04/2022 and 07/25/2012 Lungs and central airway: Hyperexpanded lungs with centrilobular emphysema. Stable 6 mm subpleural no dule in the posterior medial LEFT upper lobe. Previously described 5 mm nodule RIGHT lower lobe is no longer evident. New 4 mm noncalcified nodule in the LEFT lower lobe, image 35 of series 4. Stable casiano bpleural nodule in the posterior medial LEFT lower lobe. Pleura: Normal. No pleural effusion. Heart and pericardium: Normal size heart with no pericardial effusion. Mediastinum and martir: No mediastinum or hilar adenopathy. Vessels: Mild atherosclerosis aorta. Normal size aorta. Normal pulmonary artery. Chest wall and lower neck: No soft tissue masses. Upper abdomen: Prior cholecystectomy. Mild increase in thoracic kyphosis. Osseous structures: No destructive process. IMPRESSION: 1. Interval resolution RIGHT lower lobe subcentimeter pulmonary nodule since 08/29/2022. 2. New 4 mm noncalcified nodule LEFT lower lobe. No additional new nodules. No CT follow-up indicate d based on criteria. This can be reevaluated in 12 months by noncontrast chest CT. Indeterminate solid pulmonary nodule measuring 4 mm. In a high-risk patient with a solid nodule <6 mm , CT at 12 months is optional with stronger consideration if there is suspicious nodule morphology an d/or upper lobe location. 3. No pneumonia.
== END 2023-09-13 13:00 | disposition home or self-care (01) ==
LOC: RAD 12:59
PROVIDERS: PCP Family Medicine; Visit Provider Internal Medicine Pulmonary Disease
DX: J90 Pleural effusion, not elsewhere classified (principal); R91.1 Solitary pulmonary nodule
CPT/HCPCS: 71250

== ENCOUNTER 2024-12-02 11:15 | Emergency (ER) | payer SELFPAY ==
[2024-12-02 11:21] VITALS: BP 134/95; PULSE 105; RESP 22; TEMP 36.4; O2SAT 96; BMI 31.3
[2024-12-02 11:45] LABS: Hematocrit 37.7 % (36-47); Hemoglobin 12.20 g/dL (11.27-16.99); Mean Corpuscular HGB Conc 32.4 g/dL (30-55); Mean Corpuscular Hemoglobin 26.9 pg (27-33); Mean Corpuscular Volume 83.0 fl (85-98); Nucleated Red Blood Cells % 0 %; Platelet Count 247 10^3/cmm (157-399); Red Blood Count 4.54 10^6/uL (3.85-5.65); White Blood Count 5.93 10^3/uL (3.29-11.43)
[2024-12-02 12:03] LABS: Alanine Aminotransferase 16 U/L (0-33); Albumin Level 4.3 g/dL (3.5-5.2); Alkaline Phosphatase 74 U/L (35-105); Anion Gap 17.8 (5-19); Aspartate Amino Transferase 17 U/L (0-32); Blood Urea Nitrogen 8 mg/dL (6-20); Calcium 9.1 mg/dL (8.5-10.5); Carbon Dioxide 20 mmol/L (22-29); Chloride 103 mmol/L (98-107); Creatinine Clr Calc Pharmacy 117.3554; Globulin 2.8 g/dL (1.3-4.6); Glucose 91 mg/dL (65-115); Lipase 16 U/L (13-60); Osmolality Calculated 282 mOsm/kg (285-295); Potassium 3.8 mmol/L (3.5-5.1); Sodium 137 mmol/L (136-145); Total Protein 7.1 g/dL (6.6-8.7)
[2024-12-02 12:33] LABS: Glucose Urine UA Negative (Normal); Nitrate Urine Negative (Negative)
[2024-12-02 12:38] LABS: Add Urine Microscopic? YES; Universal Test for UA Present (0)
[2024-12-02 12:47] LABS: Specific Gravity, Urine 1.038 (1.005-1.030); UA Manual Slide Review YES
[2024-12-02 12:56] LABS: HCG Qualitative Urine. Negative (Negative)
--- NOTE | 2024-12-02 13:07 | CT_ITS ---
WS: [id number] CT ABDOMEN PELVIS TECHNIQUE: Contrast-enhanced CT of the abdomen and pelvis with coronal and sagittal reformatted images. CLINICAL INFORMATION: abd pain COMPARISON: CT 06/21/2022 DLP: 815.[address] scans at [facility] use at least one of these dose optimization techniques: automated exposure control; mA and/or kV adjustment per patient size (includes targeted exams where dose is matched to clinical indication); or iterative reconstruction. FINDINGS: Small fat-containing epigastric hernia in the area of pain with a tiny amount of herniated fat induration. No herniated bowel or fluid. Hernia mouth measures 2.1 cm. Additional incidental fat-containing umbilical hernia. Fatty liver. Tiny hepatic cyst. Hepatomegaly. Portal vein and splenic vein are patent. Prior cholecystectomy. Lung bases are well aerated. Gastric wall and rugal thickening can be seen with gastritis and duodenitis. Mild submucosal enhancement in the proximal duodenum. Normal pancreatic parenchymal enhancement. Portal vein and splenic vein are patent. Adrenal glands are normal. Normal renal parenchymal enhancement. No hydronephrosis. Normal caliber abdominal aorta. Mild aortic calcification. Mild RIGHT colon wall thickening extending into the transverse colon with fluid distended splenic flexure. Recommend correlation for infectious or inflammatory colitis. LEFT colon has a more normal appearance. Normal sigmoid colon. Normal sigmoid colon. No free fluid in the abdomen and pelvis. Normal physiologic uterine enhancement. Anteverted uterus. Normal lumbar spine. No other remarkable findings. CT/CT abdomen pelvis w con* [id number] IMPRESSION: 1. Mild hepatomegaly with fatty infiltration. 2. Prior cholecystectomy. 3. Small fat-containing epigastric hernia with hernia wall defect measuring 2. 1 cm. Small amount of induration in this area. No fluid. No herniated bowel. 4. Tiny incidental fat-containing umbilical hernia. 5. Mild wall thickening involving the RIGHT colon and transverse colon with fl uid distended splenic flexure. Recommend correlation for mild colitis infectiou s or inflammatory. LEFT colon is normal in appearance. 6. Evidence of gastritis and duodenitis 7. No other remarkable findings. Notified Angie Hernandez NP at 12/02/2024 1:48 PM.
[2024-12-02] MEDS: iohexol 350 mg/mL 500 mL Btl (per mL) IV (13:19)
[2024-12-02] MEDS: ondansetron 2 mg/ML SDV 2 mL 4 MG IVP (13:36)
--- NOTE | 2024-12-02 14:10 | W.ED.ABDPA2 ---
Documented by User: Angie Hernandez NP 12/02/24 14:15 HPI - Abdominal Pain General: Chief Complaint: Abdominal Pain Stated Complaint: abd inj Time Seen by Provider: 12/02/24 11:17 History of Present Illness: 44 yo female patient presents to ER with c/o abd pain after lifting heavy boxes. Pt has a known epigastric hernia and states that her hernia strated hurting. Pt denies any chest pain or SOB. Pt denies any other complaits. Related Data Previous Rx's ?Medication ?Instructions ?Recorded ASO #1 ea 06/10/24 amoxicillin 875 mg-potassium 1 tab PO BID 7 days #14 tabs 12/02/24 clavulanate 125 mg tablet Allergies Allergy/AdvReac Type Severity Reaction Status Date / Time No Known Allergies Allergy Verified 12/02/24 11:26 Review of Systems General: Reports: 10 or more systems reviewed and unremarkable except in HPI and below PFSH ED PFSH: Medical History (Updated 12/02/24 @ 14:07 by Angie Hernandez NP) Asthma Depression Social History Smoking and tobacco/nicotine status: current every day tobacco/nicotine user Quit status (tobacco/nicotine): has quit using Year quit tobacco: 2022 Former quit date comment: 1ppd x 24 years Physical Exam Const: COMMON NORMALS: no acute distress, average body habitus, patient oriented x3, no limitations, healthy appearing, alert and well nourished HENMT: COMMON NORMALS: normocephalic HEAD & SCALP: normocephalic Resp: COMMON NORMALS: normal respiratory effort, No retractions and clear to auscultation bilaterally AUSCULTATION: clear to auscultation bilaterally Cardio: COMMON NORMALS: regular rate and regular rhythm RATE: regular rate RHYTHM: regular rhythm GI: COMMON NORMALS: Normal to inspection, nondistended, normoactive bowel sounds present, Soft to palpation, non-tender and no masses PALPATION: Yes Soft to palpation : COMMON NORMALS: Yes no CVA tenderness BLADDER/KIDNEY EXAM: Yes no CVA tenderness Back/Pelvis: COMMON NORMALS: no CVA tenderness Neuro: COMMON NORMALS: patient oriented x3 SENSORIUM/ORIENTATION: Yes alert Skin: COMMON NORMALS: no rashes or lesions noted GENERAL SKIN EXAM: no rashes or lesions noted and elasticity normal Course Vital Signs: Vital signs: Vital Signs Temperature 97.6 F 12/02/24 11:21 Pulse Rate 74 12/02/24 14:35 Respiratory Rate 22 H 12/02/24 11:21 Blood Pressure 114/70 12/02/24 14:35 Pulse Oximetry 95 12/02/24 14:35 MDM - Abdominal Pain Medical Decision Making Patient is well appearing non toxic and in no acute distress. 44 yo female patient presents to ER with c/o abd pain after lifting heavy boxes. Pt has a known epigastric hernia and states that her hernia strated hurting. Pt denies any chest pain or SOB. Pt denies any other complaints. CT reveals colitis and patient does have a mildy elevated WBC. Pt states she has had a few episodes of diarrhea. I discussed with patient treating this with antibiotics and she states she would like to treat with antibiotics. I will place a referral to Surgeon for discussion of hernia. No acute emergent changes with this on CT. Labs are otherwise reassuring. VSS. Pt improved with toradol. Lab Data 12/02/24 11:38 12/02/24 11:38 Labs/Radiology: Radiology Impressions Abdomen/Pelvis CT 12/02/24 13:07 IMPRESSION: 1. Mild hepatomegaly with fatty infiltration. 2. Prior cholecystectomy. 3. Small fat-containing epigastric hernia with hernia wall defect measuring 2.1 cm. Small amount of induration in this area. No fluid. No herniated bowel. 4. Tiny incidental fat-containing umbilical hernia. 5. Mild wall thickening involving the RIGHT colon and transverse colon with fluid distended splenic flexure. Recommend correlation for mild colitis infectious or inflammatory. LEFT colon is normal in appearance. 6. Evidence of gastritis and duodenitis 7. No other remarkable findings. Notified Angie Hernandez NP at 12/02/2024 1:48 PM. Laboratory Results WBC 5.93 10^3/uL (3.29-11.43) 12/02/24 11:38 RBC 4.54 10^6/uL (3.85-5.65) 12/02/24 11:38 Hgb 12.20 g/dL (11.27-16.99) 12/02/24 11:38 Hct 37.7 % (36-47) 12/02/24 11:38 MCV 83.0 fl (85-98) L 12/02/24 11:38 MCH 26.9 pg (27-33) L 12/02/24 11:38 MCHC 32.4 g/dL (30-55) 12/02/24 11:38 RDW 17.5 % (12.1-15.1) H 12/02/24 11:38 Plt Count 247 10^3/cmm (157-399) 12/02/24 11:38 MPV 11.4 fL (7.4-10.4) H 12/02/24 11:38 Neut % (Auto) 61.5 % 12/02/24 11:38 Lymph % (Auto) 24.5 % 12/02/24 11:38 [place] % (Auto) 11.1 % 12/02/24 11:38 Eos % (Auto) 1.9 % 12/02/24 11:38 Baso % (Auto) 0.7 % 12/02/24 11:38 Neut # (Auto) 3.65 10^3/uL (1.8-7.7) 12/02/24 11:38 Lymph # (Auto) 1.5 10^3/uL (0.8-4.8) 12/02/24 11:38 [place] # (Auto) 0.7 10^3/uL (0.2-0.9) 12/02/24 11:38 Eos # (Auto) 0.1 10^3/uL (0.0-0.8) 12/02/24 11:38 Baso # (Auto) 0.0 10^3/uL (0.0-0.1) 12/02/24 11:38 Nucleated RBC % (auto) 0 % 12/02/24 11:38 Nucleated RBCs # 0.0 /100WBC 12/02/24 11:38 Sodium 137 mmol/L (136-145) 12/02/24 11:38 Potassium 3.8 mmol/L (3.5-5.1) 12/02/24 11:38 Chloride 103 mmol/L (98-107) 12/02/24 11:38 Carbon Dioxide 20 mmol/L (22-29) L 12/02/24 11:38 Anion Gap 17.8 (5-19) 12/02/24 11:38 BUN 8 mg/dL (6-20) 12/02/24 11:38 Creatinine 0.7 mg/dL (0.5-0.9) 12/02/24 11:38 GFR Calculation 90.5 mL/min (90-130) 12/02/24 11:38 Glucose 91 mg/dL (65-115) 12/02/24 11:38 Calculated Osmolality 282 mOsm/kg (285-295) L 12/02/24 11:38 Calcium 9.1 mg/dL (8.5-10.5) 12/02/24 11:38 Total Bilirubin 0.2 mg/dL (0.15-1.2) 12/02/24 11:38 AST 17 U/L (0-32) 12/02/24 11:38 ALT 16 U/L (0-33) 12/02/24 11:38 Alkaline Phosphatase 74 U/L (35-105) 12/02/24 11:38 Total Protein 7.1 g/dL (6.6-8.7) 12/02/24 11:38 Albumin 4.3 g/dL (3.5-5.2) 12/02/24 11:38 Globulin 2.8 g/dL (1.3-4.6) 12/02/24 11:38 Lipase 16 U/L (13-60) 12/02/24 11:38 HCG, Qual Negative (Negative) 12/02/24 12:16 Urine Color Yellow (Yellow) 12/02/24 12:16 Urine Appearance Cloudy (CLEAR) A 12/02/24 12:16 Urine pH 5.0 (5-7) 12/02/24 12:16 Ur Specific [place] 1.038 (1.005-1.030) H 12/02/24 12:16 Urine Protein 1+ (Negative) A 12/02/24 12:16 Urine Glucose (UA) Negative (Normal) 12/02/24 12:16 Urine Ketones Trace (Negative) 12/02/24 12:16 Urine Blood Negative (Negative) 12/02/24 12:16 Urine Nitrate Negative (Negative) 12/02/24 12:16 Urine Bilirubin Negative (Negative) 12/02/24 12:16 Urine Urobilinogen 1.0 mg/dL (Negative) 12/02/24 12:16 Ur Leukocyte Esterase Negative (Negative) 12/02/24 12:16 Urine RBC None /hpf (0-2) 12/02/24 12:16 Urine WBC 0-4 /hpf (0-5) H 12/02/24 12:16 Ur Squamous Epith Cells 5-10 /hpf (0-5) H 12/02/24 12:16 Calcium Oxalate Crystal 25-40 /hpf H 12/02/24 12:16 Amorphous Sediment Not Reportable 12/02/24 12:16 Urine Bacteria 1+ /hpf (NONE) H 12/02/24 12:16 XR interpretation done by ED provider, pending radiology final review Discharge Plan Discharge Patient Disposition: Home Clinical Impression: Colitis, Epigastric hernia Condition: Stable Prescriptions: New amoxicillin-pot clavulanate 875-125 mg tablet 1 tab PO BID 7 Days Qty: 14 0RF No Action (DME) ASO See Rx Instructions .Route .MEDSUPPLY Qty: 1 0RF Rx Instructions: As directed Discharge Orders: Discharge ED (Routine); Ordered 12/02/24 Ordered By: Angie Hernandez Referrals: Red Blanco MD [Primary Care Provider, Family Practice] Discharge Diet: Advance as tolerated Discharge Activity: Increase activity as tolerated Patient Instructions: Colitis (ED), Opioid Safety, Pain Management, Patient Portal & Vandana Instructions Activity Restrictions/Additional Instructions: Please follow up with Surgeon as discussed regarding hernia Advance diet as tolerated Take medications as prescribed Return to ER with any worsning of symptoms or concerns Print Language: Citizen Of [place] Coding Level of Care Code ED Lead Game Designer for Chg Fwd Documented by User: Angelo Ascencio DO 12/02/24 16:19 HPI - Abdominal Pain General: Chief Complaint: Abdominal Pain Stated Complaint: abd inj Time Seen by Provider: 12/02/24 11:17 Related Data Previous Rx's ?Medication ?Instructions ?Recorded ASO #1 ea 06/10/24 amoxicillin 875 mg-potassium 1 tab PO BID 7 days #14 tabs 12/02/24 clavulanate 125 mg tablet Allergies Allergy/AdvReac Type Severity Reaction Status Date / Time No Known Allergies Allergy Verified 12/02/24 11:26 [facility] ED [facility]: Medical History (Updated 12/02/24 @ 14:07 by Angie Hernandez NP) Asthma Depression Social History Smoking and tobacco/nicotine status: current every day tobacco/nicotine user Quit status (tobacco/nicotine): has quit using Year quit tobacco: 2022 Former quit date comment: 1ppd x 24 years Course Vital Signs: Vital signs: Vital Signs Temperature 97.6 F 12/02/24 11:21 Pulse Rate 74 12/02/24 14:35 Respiratory Rate 22 H 12/02/24 11:21 Blood Pressure 114/70 12/02/24 14:35 Pulse Oximetry 95 12/02/24 14:35 MDM - Abdominal Pain Medical Decision Making Patient is well appearing non toxic and in no acute distress. 44 yo female patient presents to ER with c/o abd pain after lifting heavy boxes. Pt has a known epigastric hernia and states that her hernia strated hurting. Pt denies any chest pain or SOB. Pt denies any other complaints. CT reveals colitis and patient does have a mildy elevated WBC. Pt states she has had a few episodes of diarrhea. I discussed with patient treating this with antibiotics and she states she would like to treat with antibiotics. I will place a referral to Surgeon for discussion of hernia. No acute emergent changes with this on CT. Labs are otherwise reassuring. VSS. Pt improved with toradol. Chart reviewed and patient discussed with midlevel. Agree with assessment and plan. Lab Data 12/02/24 11:38 12/02/24 11:38 Labs/Radiology: Radiology Impressions Abdomen/Pelvis CT 12/02/24 13:07 IMPRESSION: 1. Mild hepatomegaly with fatty infiltration. 2. Prior cholecystectomy. 3. Small fat-containing epigastric hernia with hernia wall defect measuring 2.1 cm. Small amount of induration in this area. No fluid. No herniated bowel. 4. Tiny incidental fat-containing umbilical hernia. 5. Mild wall thickening involving the RIGHT colon and transverse colon with fluid distended splenic flexure. Recommend correlation for mild colitis infectious or inflammatory. LEFT colon is normal in appearance. 6. Evidence of gastritis and duodenitis 7. No other remarkable findings. Notified Angie Denevan, ECONOMIC RESEARCH ASSISTANT at 12/02/2024 1:48 PM. Laboratory Results WBC 5.93 10^3/uL (3.29-11.43) 12/02/24 11:38 RBC 4.54 10^6/uL (3.85-5.65) 12/02/24 11:38 Hgb 12.20 g/dL (11.27-16.99) 12/02/24 11:38 Hct 37.7 % (36-47) 12/02/24 11:38 MCV 83.0 fl (85-98) L 12/02/24 11:38 MCH 26.9 pg (27-33) L 12/02/24 11:38 MCHC 32.4 g/dL (30-55) 12/02/24 11:38 RDW 17.5 % (12.1-15.1) H 12/02/24 11:38 Plt Count 247 10^3/cmm (157-399) 12/02/24 11:38 MPV 11.4 fL (7.4-10.4) H 12/02/24 11:38 Neut % (Auto) 61.5 % 12/02/24 11:38 Lymph % (Auto) 24.5 % 12/02/24 11:38 [place] % (Auto) 11.1 % 12/02/24 11:38 Eos % (Auto) 1.9 % 12/02/24 11:38 Baso % (Auto) 0.7 % 12/02/24 11:38 Neut # (Auto) 3.65 10^3/uL (1.8-7.7) 12/02/24 11:38 Lymph # (Auto) 1.5 10^3/uL (0.8-4.8) 12/02/24 11:38 [place] # (Auto) 0.7 10^3/uL (0.2-0.9) 12/02/24 11:38 Eos # (Auto) 0.1 10^3/uL (0.0-0.8) 12/02/24 11:38 Baso # (Auto) 0.0 10^3/uL (0.0-0.1) 12/02/24 11:38 Nucleated RBC % (auto) 0 % 12/02/24 11:38 Nucleated RBCs # 0.0 /100WBC 12/02/24 11:38 Sodium 137 mmol/L (136-145) 12/02/24 11:38 Potassium 3.8 mmol/L (3.5-5.1) 12/02/24 11:38 Chloride 103 mmol/L (98-107) 12/02/24 11:38 Carbon Dioxide 20 mmol/L (22-29) L 12/02/24 11:38 Anion Gap 17.8 (5-19) 12/02/24 11:38 BUN 8 mg/dL (6-20) 12/02/24 11:38 Creatinine 0.7 mg/dL (0.5-0.9) 12/02/24 11:38 GFR Calculation 90.5 mL/min (90-130) 12/02/24 11:38 Glucose 91 mg/dL (65-115) 12/02/24 11:38 Calculated Osmolality 282 mOsm/kg (285-295) L 12/02/24 11:38 Calcium 9.1 mg/dL (8.5-10.5) 12/02/24 11:38 Total Bilirubin 0.2 mg/dL (0.15-1.2) 12/02/24 11:38 AST 17 U/L (0-32) 12/02/24 11:38 ALT 16 U/L (0-33) 12/02/24 11:38 Alkaline Phosphatase 74 U/L (35-105) 12/02/24 11:38 Total Protein 7.1 g/dL (6.6-8.7) 12/02/24 11:38 Albumin 4.3 g/dL (3.5-5.2) 12/02/24 11:38 Globulin 2.8 g/dL (1.3-4.6) 12/02/24 11:38 Lipase 16 U/L (13-60) 12/02/24 11:38 HCG, Qual Negative (Negative) 12/02/24 12:16 Urine Color Yellow (Yellow) 12/02/24 12:16 Urine Appearance Cloudy (CLEAR) A 12/02/24 12:16 Urine pH 5.0 (5-7) 12/02/24 12:16 Ur Specific [place] 1.038 (1.005-1.030) H 12/02/24 12:16 Urine Protein 1+ (Negative) A 12/02/24 12:16 Urine Glucose (UA) Negative (Normal) 12/02/24 12:16 Urine Ketones Trace (Negative) 12/02/24 12:16 Urine Blood Negative (Negative) 12/02/24 12:16 Urine Nitrate Negative (Negative) 12/02/24 12:16 Urine Bilirubin Negative (Negative) 12/02/24 12:16 Urine Urobilinogen 1.0 mg/dL (Negative) 12/02/24 12:16 Ur Leukocyte Esterase Negative (Negative) 12/02/24 12:16 Urine RBC None /hpf (0-2) 12/02/24 12:16 Urine WBC 0-4 /hpf (0-5) H 12/02/24 12:16 Ur Squamous Epith Cells 5-10 /hpf (0-5) H 12/02/24 12:16 Calcium Oxalate Crystal 25-40 /hpf H 12/02/24 12:16 Amorphous Sediment Not Reportable 12/02/24 12:16 Urine Bacteria 1+ /hpf (NONE) H 12/02/24 12:16 Discharge Plan Discharge Patient Disposition: Home Clinical Impression: Colitis, Epigastric hernia Condition: Stable Prescriptions: New amoxicillin-pot clavulanate 875-125 mg tablet 1 tab PO BID 7 Days Qty: 14 0RF No Action (DME) ASO See Rx Instructions .Route .MEDSUPPLY Qty: 1 0RF Rx Instructions: As directed Discharge Orders: Discharge ED (Routine); Ordered 12/02/24 Ordered By: Angie Hernandez Referrals: Red Blanco MD [Primary Care Provider, [facility]] Discharge Diet: Advance as tolerated Discharge Activity: Increase activity as tolerated Patient Instructions: Colitis (ED), Opioid Safety, Pain Management, Patient Portal & Vandana Instructions Activity Restrictions/Additional Instructions: Please follow up with Surgeon as discussed regarding hernia Advance diet as tolerated Take medications as prescribed Return to ER with any worsning of symptoms or concerns Print Language: Citizen Of [place] Coding Level of Care Code ED Lead Game Designer for [place]
[2024-12-02 14:35] VITALS: BP 114/70; PULSE 74; O2SAT 95
== END 2024-12-02 14:36 | disposition home or self-care (01) ==
PROVIDERS: Emergency Provider Registered Nurse; PCP Family Medicine
DX: K52.9 Noninfective gastroenteritis and colitis, unspecified (principal); K43.9 Ventral hernia without obstruction or gangrene; Z72.0 Tobacco use
CPT/HCPCS: 74177; 80053; 81001; 81025; 83690; 85025; 96374; 96375; 99285; J1885; J2405

== ENCOUNTER 2024-12-07 11:52 | Emergency (ER) | payer OTHER, SELFPAY ==
[2024-12-07] VITALS (10 sets, daily range): BP systolic 118–148; BP diastolic 52–82; PULSE 65–91; RESP 16; TEMP 36.8; O2SAT 91–98; BMI 30.8
[2024-12-07] MEDS: ondansetron 2 mg/ML SDV 2 mL 4 MG IVP (12:47)
[2024-12-07] MEDS: morphine 4 mg/mL SDV 1 mL IVP (12:48)
[2024-12-07 13:05] LABS: Hematocrit 38.9 % (36-47); Hemoglobin 12.70 g/dL (11.27-16.99); Mean Corpuscular HGB Conc 32.6 g/dL (30-55); Mean Corpuscular Hemoglobin 26.8 pg (27-33); Mean Corpuscular Volume 82.2 fl (85-98); Nucleated Red Blood Cells % 0 %; Platelet Count 311 10^3/cmm (157-399); Red Blood Count 4.73 10^6/uL (3.85-5.65); White Blood Count 7.51 10^3/uL (3.29-11.43)
--- NOTE | 2024-12-07 13:19 | ED_ITS ---
HPI - Abdominal Pain 2 General: Chief Complaint: Abdominal Pain Stated Complaint: abd pain, n/v, black stool Time Seen by Provider: 12/07/24 12:16 History of Present Illness: This patient is a 44 year old presenting with abdominal pain and dry heaves. She reports that she was seen here on Sunday after lifting a heavy board at work. She felt a tearing sensation in her upper abdomen and was told that she had developed a hernia - seen on CT. She was also told that she had colitis and was started on antibiotics (augmentin). Since then she has continued to have pain and started having some trouble swallowing yesterday - today she says it is really hard to get food down and she has intermittent dry heaves. She has not eaten anything today. She has had her gallbladder out as her only abdominal surgery. She denies urinary symptoms. She has had black stools but is taking pepto bismol. She did have a GI bleed in the past and had a polyp removed on colonoscopy. She denies history of ulcers or reflux. She denies regular or frequent alcohol use. She does smoke marijuana. She has not taken ibuprofen or tylenol for pain. Related Data Previous Rx's ?Medication ?Instructions ?Recorded ASO #1 ea 06/10/24 amoxicillin 875 mg-potassium 1 tab PO BID 7 days #14 t abs 12/02/24 clavulanate 125 mg tablet sucralfate 1 gram tablet (Carafate) 1 g PO TID PRN abd ominal 12/07/24 discomfort #30 tabs Allergies Allergy/AdvReac Type Severity Reaction Status Date / Time No Known Allergies Allergy Verified 12/02/24 11:26 [facility] ED 2 [facility]: Medical History (Updated 12/07/24 @ 17:57 by Radha Bradford MD) Asthma Depression Social History Smoking and tobacco/nicotine status: current every day tobacco/nicotine user Quit status (tobacco/nicotine): has quit using Year quit tobacco: 2022 Former quit date comment: 1ppd x 24 years Physical Exam 2 Const: COMMON NORMALS: no acute distress, patient oriented x3, no limitations and alert GENERAL APPEARANCE: cooperative and comfortable HENMT: HEAD & SCALP: normal to inspection FACE & SINUS: normal facial exam Eye: GENERAL EYE: appearance normal, both eyes and all related structures Neck/C-Spine: COMMON NORMALS: supple, no meningeal signs and no JVD Chest: COMMONS NORMALS: normal inspection of the chest Resp: COMMON NORMALS: normal respiratory effort, No use of accessory muscles and clear to auscultation bilaterally AUSCULTATION: clear to auscultation bilaterally Cardio: COMMON NORMALS: no JVD, regular rate, regular rhythm and No murmurs present (Cardio) RATE: regular rate RHYTHM: regular rhythm GI: OTHER: small knot in the upper abdomen in the epigastric area consistent with a small hernia - fat/omentum. Diffusely tender with voluntary guarding in the upper abdomen. Back/Pelvis: COMMON NORMALS: thoracic and lumbar spine normal to inspection Extremity: COMMON NORMALS: normal to inspection Neuro: COMMON NORMALS: patient oriented x3, moves all extremities, no focal motor deficits and no sensory deficits noted SENSORIUM/ORIENTATION: Yes alert MENINGEAL SIGNS: Yes no meningeal signs Psych: COMMON NORMALS: mental status grossly normal, cooperative and normal affect Skin: COMMON NORMALS: no rashes or lesions noted and turgor normal GENERAL SKIN EXAM: no rashes or lesions noted and turgor normal Course 2 Vital Signs: Vital signs: Vital Signs Temperature 98.2 F 12/07/24 12:07 Pulse Rate 87 12/07/24 17:30 Respiratory Rate 16 12/07/24 12:48 Blood Pressure 148/82 12/07/24 16:00 Pulse Oximetry 95 12/07/24 17:30 Oxygen Delivery Me thod Room Air 12/07/24 17:30 MDM - Abdominal Pain Medical Decision Making Patient with abdominal discomfort. She describes difficulty swallowing although I am not sure if she truly is having difficulty swallowing or is expressing her nausea in this way. She did have an injury recently in the upper abdomen and was diagnosed with a new onset hernia. I did decide to get a CT of her chest abdomen pelvis to further evaluate for any other injuries in this area. This was generally unremarkable. The small hernia is visible and there is definitely no bowel entrapped in it. It was not markedly tender on exam. She was feeling better and was able to tolerate p.o. She has a follow-up with her primary care physician tomorrow. Lab Data 12/07/24 12:15 12/07/24 12:15 Labs/Radiology: Radiology Impressions Chest/Abdomen/Pelvis CT 12/07/24 13:42 IMPRESSION: Stable pulmonary nodules in the left lung measuring 5 mm or less in size. Suggest follow-up chest CT in 12 months. IMPRESSION: No acute findings. Focal jejunal dilatation which could represent transient peristalsis as the remainder of the small bowel is unremarkable. Laboratory Results WBC 7.51 10^3/uL (3.29-11.43) 12/07/24 12:15 RBC 4.73 10^6/uL (3.85-5.65) 12/07/24 12:15 Hgb 12.70 g/dL (11.27-16.99) 12/07/24 12:15 Hct 38.9 % (36-47) 12/07/24 12:15 MCV 82.2 fl (85-98) L 12/07/24 12:15 MCH 26.8 pg (27-33) L 12/07/24 12:15 MCHC 32.6 g/dL (30-55) 12/07/24 12:15 RDW 16.8 % (12.1-15.1) H 12/07/24 12:15 Plt Count 311 10^3/cmm (157-399) 12/07/24 12:15 MPV 11.5 fL (7.4-10.4) H 12/07/24 12:15 Neut % (Auto) 50.7 % 12/07/24 12:15 Lymph % (Auto) 36.8 % 12/07/24 12:15 [place] % (Auto) 8.9 % 12/07/24 12:15 Eos % (Auto) 2.5 % 12/07/24 12:15 Baso % (Auto) 0.8 % 12/07/24 12:15 Neut # (Auto) 3.81 10^3/uL (1.8-7.7) 12/07/24 12:15 Lymph # (Auto) 2.8 10^3/uL (0.8-4.8) 12/07/24 12:15 [place] # (Auto) 0.7 10^3/uL (0.2-0.9) 12/07/24 12:15 Eos # (Auto) 0.2 10^3/uL (0.0-0.8) 12/07/24 12:15 Baso # (Auto) 0.1 10^3/uL (0.0-0.1) 12/07/24 12:15 Nucleated RBC % (auto) 0 % 12/07/24 12:15 Nucleated RBCs # 0.0 /100WBC 12/07/24 12:15 Sodium 136 mmol/L (136-145) 12/07/24 12:15 Potassium 3.7 mmol/L (3.5-5.1) 12/07/24 12:15 Chloride 100 mmol/L (98-107) 12/07/24 12:15 Carbon Dioxide 24 mmol/L (22-29) 12/07/24 12:15 Anion Gap 15.7 (5-19) 12/07/24 12:15 BUN 7 mg/dL (6-20) 12/07/24 12:15 Creatinine 0.6 mg/dL (0.5-0.9) 12/07/24 12:15 GFR Calculation 108.1 mL/min (90-130) 12/07/24 12:15 Glucose 96 mg/dL (65-115) 12/07/24 12:15 Calculated Osmolality 280 mOsm/kg (285-295) L 12/07/24 12:15 Lactic Acid 1.0 mmol/L (0.5-2.2) 12/07/24 12:55 Calcium 8.8 mg/dL (8.5-10.5) 12/07/24 12:15 Total Bilirubin 0.2 mg/dL (0.15-1.2) 12/07/24 12:15 AST 22 U/L (0-32) 12/07/24 12:15 ALT 24 U/L (0-33) 12/07/24 12:15 Alkaline Phosphatase 71 U/L (35-105) 12/07/24 12:15 Total Protein 6.7 g/dL (6.6-8.7) 12/07/24 12:15 Albumin 4.1 g/dL (3.5-5.2) 12/07/24 12:15 Globulin 2.6 g/dL (1.3-4.6) 12/07/24 12:15 Lipase 22 U/L (13-60) 12/07/24 12:15 HCG, Qual Negative (Negative) 12/07/24 12:15 Urine Color Yellow (Yellow) 12/07/24 16:37 Urine Appearance Clear (CLEAR) 12/07/24 16:37 Urine pH 5.0 (5-7) 12/07/24 16:37 Ur Specific [place] 1.084 (1.005-1.030) H 12/07/24 16:37 Urine Protein Negative (Negative) 12/07/24 16:37 Urine Glucose (UA) Negative (Normal) 12/07/24 16:37 Urine Ketones Negative (Negative) 12/07/24 16:37 Urine Blood Negative (Negative) 12/07/24 16:37 Urine Nitrate Negative (Negative) 12/07/24 16:37 Urine Bilirubin Negative (Negative) 12/07/24 16:37 Urine Urobilinogen 1.0 mg/dL (Negative) 12/07/24 16:37 Ur Leukocyte Esterase Negative (Negative) 12/07/24 16:37 Urine RBC 0-2 /hpf (0-2) 12/07/24 16:37 Urine WBC 0-5 /hpf (0-5) 12/07/24 16:37 Ur Squamous Epith Cells 0-5 /hpf (0-5) 12/07/24 16:37 Amorphous Sediment Not Reportable 12/07/24 16:37 Urine Bacteria None seen /hpf (NONE) 12/07/24 16:37 Hyaline Casts 0-4 /lpf H 12/07/24 16:37 All radiology interpretation(s) finalized by discharge Discharge Plan Discharge Patient Disposition: Home Clinical Impression: Abdominal pain, Dysphagia, Hernia, ventral Condition: Stable Prescriptions: New sucralfate [Carafate] 1 gram tablet 1 g PO TID PRN (Reason: abdominal discomfort) Qty: 30 0RF No Action (DME) ASO See Rx Instructions .Route .MEDSUPPLY Qty: 1 0RF Rx Instructions: As directed amoxicillin-pot clavulanate 875-125 mg tablet 1 tab PO BID 7 Days Qty: 14 0RF Discharge Orders: Discharge ED (Routine); Ordered 12/07/24 Ordered By: Radha Bradford Referrals: Red Blanco MD [Primary Care Provider, Family Practice] Patient Instructions: Abdominal Pain (ED), Opioid Safety, Pain Management, Patient Portal & Vandana Instructions Print Language: [place] Coding Level of Care Code ED Government Guard for [place]
[2024-12-07 13:22] LABS: Lactic Sepsis W/Reflex 1.0 mmol/L (0.5-2.2)
[2024-12-07 13:24] LABS: Alanine Aminotransferase 24 U/L (0-33); Albumin Level 4.1 g/dL (3.5-5.2); Alkaline Phosphatase 71 U/L (35-105); Anion Gap 15.7 (5-19); Aspartate Amino Transferase 22 U/L (0-32); Blood Urea Nitrogen 7 mg/dL (6-20); Calcium 8.8 mg/dL (8.5-10.5); Carbon Dioxide 24 mmol/L (22-29); Chloride 100 mmol/L (98-107); Creatinine Clr Calc Pharmacy 135.8978; Globulin 2.6 g/dL (1.3-4.6); Glucose 96 mg/dL (65-115); Lipase 22 U/L (13-60); Osmolality Calculated 280 mOsm/kg (285-295); Potassium 3.7 mmol/L (3.5-5.1); Sodium 136 mmol/L (136-145); Total Protein 6.7 g/dL (6.6-8.7)
[2024-12-07 13:26] LABS: HCG, Serum Qual Negative (Negative)
--- NOTE | 2024-12-07 13:42 | CTR_ITS ---
PROCEDURE INFORMATION: Exam: CT Chest With Contrast; Diagnostic Exam date and time: 12/07/2024 2:04 PM Age: 44 years old Clinical indication: Other: Dysphagia; Abdominal pain; Epigastric; Sternal or substernal pain; Prior surgery; Surgery date: 6+ months; Surgery type: Gb; Additional info: Difficulty swallowing, epigastric pain TECHNIQUE: Imaging protocol: Diagnostic computed tomography of the chest with contrast. Radiation optimization: All CT scans at this facility use at least one of these dose optimization techniques: automated exposure control; mA and/or kV adjustment per patient size (includes targeted exams where dose is matched to clinical indication); or iterative reconstruction. Contrast material: OMNIPAQUE 350; Contrast volume: 100 ml; Contrast route: INTRAVENOUS (IV); COMPARISON: CT chest wo con [id number] 09/13/2023 1:03 PM RADIATION DOSE METRICS: Total DLP (mGy-cm): 1288.07 FINDINGS: Lungs: Mild emphysema. Stable pulmonary nodule at the left apex measuring 5 mm. Left lower lobe pleural based nodule measures 4 mm without appreciable change. Mild curvilinear atelectasis at the bases. Pleural spaces: See Lungs finding. Heart: Unremarkable. No cardiomegaly. No pericardial effusion. Lymph nodes: Unremarkable. No enlarged lymph nodes. Vasculature: Unremarkable. No aortic aneurysm. Bones/joints: Unremarkable. No acute fracture. Soft tissues: Unremarkable. PROCEDURE INFORMATION: Exam: CT Abdomen And Pelvis With Contrast Exam date and time: 12/07/2024 2:04 PM Age: 44 years old Clinical indication: Other: Dysphagia; Abdominal pain; Epigastric; Sternal or substernal pain; Prior surgery; Surgery date: 6+ months; Surgery type: Gb; Additional info: Difficulty swallowing, epigastric pain TECHNIQUE: Imaging protocol: Computed tomography of the abdomen and pelvis with contrast. Radiation optimization: All CT scans at this facility use at least one of these dose optimization techniques: automated exposure control; mA and/or kV adjustment per patient size (includes targeted exams where dose is matched to clinical indication); or iterative reconstruction. Contrast material: OMNIPAQUE 350; Contrast volume: 100 ml; Contrast route: INTRAVENOUS (IV); COMPARISON: CT abdomen pelvis w con* [id number] 12/02/2024 1:17 PM RADIATION DOSE METRICS: Total DLP (mGy-cm): 1288.07 FINDINGS: Liver: Punctate low-density lesion in the left hepatic lobe is stable but too small to characterize. Gallbladder and biliary ducts: Status post cholecystectomy. Pancreas: Normal. No ductal dilation. Spleen: Normal. No splenomegaly. Adrenal glands: Normal. No mass. Kidneys and ureters: Normal. No hydronephrosis. Stomach and bowel: There is a focally dilated proximal jejunal loop. No definite obstruction. No mucosal thickening. Appendix: No evidence of appendicitis. Intraperitoneal space: Unremarkable. No free air. No significant fluid collection. Vasculature: Unremarkable. No abdominal aortic aneurysm. Lymph nodes: Unremarkable. No enlarged lymph nodes. Urinary bladder: Unremarkable as visualized. Reproductive: Unremarkable as visualized. Bones/joints: Unremarkable. No acute fracture. Soft tissues: Unremarkable. CT/CT chest abdpel w/*[id number] IMPRESSION: Stable pulmonary nodules in the left lung measuring 5 mm or less in size. Suggest follow-up chest CT in 12 months. IMPRESSION: No acute findings. Focal jejunal dilatation which could represent transient peristalsis as the remainder of the small bowel is unremarkable.
[2024-12-07] MEDS: iohexol 350 mg/mL 500 mL Btl (per mL) IV (14:04)
[2024-12-07 16:44] LABS: Glucose Urine UA Negative (Normal); Nitrate Urine Negative (Negative)
[2024-12-07 16:49] LABS: Add Urine Microscopic? YES
[2024-12-07 16:54] LABS: Specific Gravity, Urine 1.084 (1.005-1.030)
--- NOTE | 2024-12-07 17:46 | PC.NURSE ---
pt given sandwich, water, jello, crackers, peanut butter, pt drank water and ate jello, denies nausea or feeling sick. Pt voices wanting to go home.
== END 2024-12-07 18:15 | disposition home or self-care (01) ==
PROVIDERS: Emergency Provider Emergency Medicine; PCP Family Medicine
DX: K43.9 Ventral hernia without obstruction or gangrene (principal); R10.9 Unspecified abdominal pain; R13.10 Dysphagia, unspecified
CPT/HCPCS: 36415; 71260; 74177; 80053; 81001; 83605; 83690; 84703; 85025; 96361; 96374; 96375; 99285; J2270; J2405; J7030

== ENCOUNTER 2024-12-22 07:38 | Day surgery (SDC) | payer OTHER, SELFPAY ==
[2024-12-22] VITALS (13 sets, daily range): BP systolic 117–166; BP diastolic 65–119; PULSE 73–130; RESP 10–30; TEMP 36.1–36.8; O2SAT 92–99; BMI 31.1
--- NOTE | 2024-12-22 08:30 | P.HPUD_ITS ---
Surgery/Procedure H&P Update DATE OF PROCEDURE: December 22, 2024 DATE H&P PERFORMED: 12/10/24 H&P UPDATE INFORMATION: I have reviewed H&P completed within last 30 days, I have examined patient prior to procedure, No changes to prior documentation, H&P is in [facility] EMR on date indicated and Risks and benefits of the procedure reviewed PLANNED PROCEDURE: Operation Date: 12/22/24 09:00 Proposed Procedures p Laparoscopic POSSIBLE OPEN Ventral Incisional Hernia Repair w/ Mesh(Not Applicable) - Kush Dyson MD
--- NOTE | 2024-12-22 08:48 | ANES.PREANE2 ---
Pre-Anesthetic Assessment Height/Weight: Height 1.7 m Weight 90.265 kg Temp Pulse Resp BP Pulse Ox O2 Del Method 98.0 F 73 18 124/83 98 Room Air 12/22/24 07:53 12/22/24 07:53 12/22/24 07:53 12/22/24 07:53 12/22/24 07:53 12/22/24 07:53 Operation Date: 12/22/24 09:00 Proposed Procedures p Laparoscopic POSSIBLE OPEN Ventral Incisional Hernia Repair w/ Mesh(Not Applicable) - Kush Dyson MD Familial anesthetic complications: None Was Beta Gus taken within 24 hours: N/A Was Clonidine taken within 24 hours: N/A Last intake: Intake Last Liquid Date 12/21/24 Last Liquid Time 21:00 Last Solid Date 12/21/24 Last Solid Time 19:30 Social No alcohol and No tobacco former smoker Exam alert, oriented x 3, clear to auscultation bilaterally and regular rate & rhythm Airway Mallampati: Class III Dentition: other (missing) Pulmonary Asthma and Chronic Obstructive Pulmonary Disease Neuropsych Depression Anesthetic Plan ASA status: 3 Anesthesia: General Risk of > 500 ml blood loss (7ml/kg in children): No Medications/Allergies Home Medications ?Medication ?Instructions ?Recorded ?Confirmed ?Last Taken ?Type No Known Home Medications 12/18/24 12/18/24 Unknown History Allergies Allergy/AdvReac Type Severity Reaction Status Date / Time sucralfate (From Carafate) Allergy Severe ALGY-Hives Verified 12/18/24 12:28 Current Medications Generic Name Dose Route Start Last Admin Trade Name Freq PRN Reason Stop Dose Admin Sodium Chloride 1,000 mls @ 30 mls/hr 12/22/24 07:45 12/22/24 08:11 Sodium Chloride 0.9% IV 12/23/24 07:44 30 mls/hr .Q24H ABDIRASHID Administration PFS Anesthesia Medical History (Updated 12/18/24 @ 12:30 by Charline Solo RN) Asthma Depression Social History Smoking and tobacco/nicotine status: current every day tobacco/nicotine user Quit status (tobacco/nicotine): has quit using Year quit tobacco: 2022 Former quit date comment: 1ppd x 24 years Female Reproductive History Date of last menstrual period: 11/16/24 Data Anesthesia Cardiac Studies: Echocardiogram 07/05/22
[2024-12-22] MEDS: ceFAZolin 2,000 mg SDV 2000 MG IVP (09:07)
[2024-12-22] MEDS: BUPivacaine 0.25% INJ 30 mL INJECTION (10:18)
[2024-12-22] MEDS: lidocaine-epi 1% 20 mL INJ INJECTION (10:22)
--- NOTE | 2024-12-22 10:47 | P.OP_ITS ---
Operative Report Date of procedure: December 22, 2024 Pre-op diagnosis: Epigastric incisional hernia Post-op diagnosis: Epigastric incisional hernia measuring 3.5 cm Post-op findings: There was an epigastric incisional hernia measuring 3.5 cm Procedure done: laparoscopic repair of epigastric incisional hernia. Bilateral tap block Implants: 11cm Bard ventralight mesh Specimens removed/disposition: none Surgeon: Kush Dyson MD Card Punching Machine Operator: PAULA OR Staff Estimated blood loss: 10 Complications: none apparent Findings: 2.5 cm epigastric hernia containing fat from the falciform ligament Brief History: Is a 44-year-old female who presented with an incisional hernia in the epigastrium after discussion of risk benefits with side to proceed to the OR for laparoscopic possible open repair. Procedure: Patient was wheeled into the OR, she was placed in the supine position. General anesthesia was given. The abdomen was prepped and draped in the usual sterile fashion. Timeout was conducted. The abdomen was accessed in the left upper quadrant with Optiview technique and a 5 mm trocar. Initial laparoscopy was obtained no evidence of visceral injury during entry. Additional 5 mm trocars were placed in the right upper quadrant and right lower quadrant and a 10 mm trocar was placed in the right flank all under direct visualization. The hernia was located in the epigastrium at the level of the falciform ligament, I used LigaSure to take down the falciform ligament until I was able to identify the edges of the hernia, the contents were reduced into the abdomen and was only fat from the falciform, I complete cleaning of the area surrounding the hernia in a diameter of about 10 cm to allow proper mesh placement. I then proceeded to close the defect with #0 PDS STRATAFIX suture. I then proceeded to place 11 cm Ventralight mesh in the abdomen, the position into was delivered through the abdominal wall using a Hermelindo-Leana suture passer and fix against the area of the defect with secure strap. The skeleton of the mesh was then removed and taken out of the abdomen. Hemostasis was verified. A bilateral tap block was done under laparoscopic visualization, 15 cc of bupivacaine was injected on each side of the abdomen. The 12 millimeter trocar site was closed with #0 Vicryl's or catheter Leana suture passer under direct visualization. The right-sided trocars were removed under direct visualization the left upper quadrant trocar was used to evacuate the pneumoperitoneum subsequently removed. Hemostasis was verified and the wounds were closed in layers. Using #3-0 Vicryl for the subcutaneous tissue #4 Monocryl for the skin. Dermabond was applied. At the end of the procedure all counts were correct the patient tolerated well the procedure was transferred to PACU in stable condition
[2024-12-22] MEDS: fentaNYL 50 mcg/mL INJ 2mL IVP ×2 (11:12→11:19)
[2024-12-22] MEDS: acetaminophen 1,000 MG/100 ML PIGGYBACK 400 MG IV (12:15)
[2024-12-22] MEDS: oxyCODONE 5 mg IR Tab/Cap PO (12:28)
--- NOTE | 2024-12-22 13:25 | ANE.PACU2 ---
Inpatient post-anesthesia follow up: Airway intact: Yes Vital signs: Temperature 98.2 F Pulse Rate 83 Respiratory Rate 16 Blood Pressure 117/65 Pulse Oximetry 93 Oxygen Delivery Me thod Room Air Oxygen Flow Rate 2 Fraction of Inspir ed Oxygen Hydration adequate: Yes Nausea and vomiting: No Pain level: 1 Mental status: Baseline
== END 2024-12-22 13:26 | disposition home or self-care (01) ==
PROVIDERS: PCP Family Medicine; Visit Provider Surgery
PROC: 0WQF4ZZ Repair Abdominal Wall, Percutaneous Endoscopic Approach (ICD-10-PCS; CPT 49593; principal; 2024-12-22 08:50)
DX: K43.2 Incisional hernia without obstruction or gangrene (principal); J44.9 Chronic obstructive pulmonary disease, unspecified; F32.A Depression, unspecified; F17.200 Nicotine dependence, unspecified, uncomplicated
CPT/HCPCS: 49593; C1781; J0131; J0690; J1100; J1171; J1885; J2250; J2405; J2704; J3010; J3490; J7030; J9999